=== PATIENT | male | born 1945 | race Caucasian/White ===

== ENCOUNTER 2019-07-24 07:25 | Outpatient (CLI) | payer OTHER, SELFPAY ==
--- NOTE | ~2019-07-24 | XR_ITS ---
XR chest 2V 07/24/2019 08:03 Indication: Pneumonia. COPD. Cough. Procedure: 2 view chest Comparison: Comparison to multiple prior studies sequentially, with oldest reviewed study dated 12/2018. Findings: There has been resolution of airspace disease of the left mid and lower lung. There is resi dual infiltrates of the lower lungs, likely atelectasis/scarring. There are emphysematous changes wit h bullous changes at the right apex. There is apical pleural thickening. Impression: 1: No acute cardiopulmonary disease. Interval resolution of left basilar pneumonia. Reviewed, dictated and finalized at location B. RANCE UNDERWRITER Impression: 1: No acute cardiopulmonary disease. Interval resolution of left basilar pneumo hilda.
== END 2019-07-24 07:26 | disposition home or self-care (01) ==
PROVIDERS: PCP Family Medicine; Visit Provider Physician Assistant
DX: J18.9 Pneumonia, unspecified organism (principal)
CPT/HCPCS: 71046

== ENCOUNTER 2019-12-10 13:46 | Outpatient (CLI) | payer OTHER, SELFPAY ==
--- NOTE | ~2019-12-10 | US_ITS ---
EXAMINATION: US venous doppler LE EXAM DATE: 12/10/2019 15:05 INDICATION: Right groin pain, follow-up. On blood thinners. TECHNIQUE: Multiple grayscale, color flow and Doppler images of the lower extremity deep venous syste ms bilaterally were obtained and reviewed. Comparison is made to prior examination from 05/31/2019. FINDINGS: RIGHT SIDE Common femoral: -------- Normal. Profunda femoral: ------- Normal. Femoral: Paired, 1 thrombosed. Popliteal: Thrombosed. Posterior tibial: ---------Nonocclusive thrombus. Peroneal: Nonocclusive thrombus. Gastrocnemius: Not visualized. Soleus: Not visualized. Greater saphenous: ----- Normal. Lesser saphenous: ------ Not visualized. Compared to prior study, previous thrombus appeared to distend the affected veins. There has been kenrick e interval improvement in bulk, size of the thrombus, and the gastrocnemius has normalized. LEFT SIDE Common femoral: -------- Normal. Profunda femoral: ------- Normal. Femoral: Normal. Popliteal: Normal. Posterior tibial: --------- Normal. Peroneal: Normal. Gastrocnemius: Not visualized. Soleus: Not visualized. Greater saphenous: ----- Normal. Lesser saphenous: ------ Not visualized. IMPRESSION: 1. Persistent right lower extremity DVT with some interval improvement. 2. No left DVT. Reviewed, dictated and finalized at location A.
== END 2019-12-10 13:47 | disposition home or self-care (01) ==
LOC: ANHIMG 13:47
PROVIDERS: PCP Family Medicine; Visit Provider Family Medicine
DX: I82.461 Acute embolism and thrombosis of right calf muscular vein (principal)
CPT/HCPCS: 93970

== ENCOUNTER 2020-03-10 08:29 | Outpatient (CLI) | payer OTHER, SELFPAY ==
--- NOTE | ~2020-03-10 | CT_ITS ---
EXAMINATION: CTA chest DATE: 03/10/2020 09:04 INDICATION: Thoracic aortic aneurysm without rupture TECHNIQUE: Computed tomographic angiography (CTA) of the chest was performed with 100 mL Omnipque-350 intravenous contrast. Maximum intensity projection 3D-reconstructions of the aorta and other arterie s were constructed by the technologist on a separate workstation. The dose-length product (DLP) was 6 34.03 mGy-cm. Automated exposure control and iterative reconstruction technique were employed. COMPARISON: 02/19/2019 FINDINGS: There is severe emphysema. The thoracic aorta measures 3.1 cm at the aortic valve, 4.3 cm a t the sinuses of Valsalva, and 3.5 cm at the level of the main pulmonary artery. There is no aortic d issection. There is a 4 mm nodule of the right lower lobe on image 76 which is not definitely identif ied on prior examinations. There is no pleural effusion or pneumothorax. Mild right hilar lymphadenop athy is stable and likely reactive. Calcified coronary artery atherosclerosis is noted. The heart siz e is normal. There is moderate thoracic spondylosis. Areas of cortical scarring are noted in the kidn eys. There is a 3 mm nonobstructing stone of the right kidney upper pole. IMPRESSION: 1. Stable ectasia of the aorta measuring 4.3 cm at the sinuses of Valsalva. 2. New 4 mm nodule of the right lower lobe. Follow-up CT in six months is recommended. 3. Severe emphysema. Reviewed, dictated and finalized at location A. IMPRESSION: 1. Stable ectasia of the aorta measuring 4.3 cm at the sinuses of Valsalva. 2. New 4 mm nodule of the right lower lobe. Follow-up CT in six months is recom mended. 3. Severe emphysema.
[2020-03-10 08:55] LABS: Estimated Glomerular Filt Rate > 60
== END 2020-03-10 08:30 | disposition home or self-care (01) ==
PROVIDERS: PCP Family Medicine; Visit Provider Internal Medicine Cardiovascular Disease
DX: I71.2 Thoracic aortic aneurysm, without rupture (principal); R91.1 Solitary pulmonary nodule; J43.9 Emphysema, unspecified
CPT/HCPCS: 71275; Q9967

== ENCOUNTER 2020-04-01 06:39 | Outpatient (NON) | payer OTHER, SELFPAY ==
[2020-04-02 14:57] LABS: SARS-CoV-2 RNA PCR Negative
== END 2020-04-01 06:40 ==
LOC: ANHCOVIDDT 06:57
PROVIDERS: PCP Family Medicine; Visit Provider Physician Assistant
DX: R05 Cough (principal); R06.02 Shortness of breath; Z20.828 Contact with and (suspected) exposure to other viral communicable diseases
CPT/HCPCS: 87635; C9803; U0003

== ENCOUNTER 2020-05-10 17:13 | Inpatient (IN) | payer OTHER, SELFPAY ==
[2020-05-10] VITALS (8 sets, daily range): BP systolic 146–191; BP diastolic 72–95; PULSE 82–106; RESP 18–28; TEMP 36.7–36.9; O2SAT 86–99; BMI 28.6
--- NOTE | ~2020-05-10 | XR_ITS ---
EXAMINATION: XR chest 1V portable EXAM DATE: 05/14/2020 06:21 INDICATION: Right pneumothorax, chest tube. TECHNIQUE: Portable AP frontal chest x-ray was obtained. Comparison is made to prior examination from 05/13/2020. FINDINGS: There is a right-sided small caliber chest tube in position. There is small right-sided pne umothorax unchanged. Patchy right-sided ill-defined predominant airspace disease unchanged, could be pneumonia and/or atelectasis. No pleural effusion. Cardiomediastinal silhouette is normal. There are mild bony degenerative changes. IMPRESSION: 1. Small right pneumothorax. Chest tube in position. 2. Patchy right-sided infiltrate. Reviewed, dictated and finalized at location A. RVISOR SINTERING PLANT
--- NOTE | ~2020-05-10 | XR_ITS ---
XR chest 1V portable 05/11/2020 21:05 Indication: Right-sided chest tube. Shortness of breath. Procedure: AP portable chest Comparison: Comparison to multiple prior studies sequentially, with oldest reviewed study dated 08/2019. Findings: Small residual pneumothorax post chest tube insertion. There is patchy bilateral airspace d isease. There is emphysema. There is right upper lobe scarring. No acute osseous abnormality. Impression: 1: Slightly increased right basilar pneumothorax compared with most recent chest x-ray. 2: Persistent patchy bilateral airspace disease, compatible with pneumonia. Reviewed, dictated and finalized at location A. NG ASSISTANT Impression: 1: Slightly increased right basilar pneumothorax compared with most recent ches t x-ray. 2: Persistent patchy bilateral airspace disease, compatible with pneumonia.
--- NOTE | ~2020-05-10 | XR_ITS ---
EXAMINATION: XR chest 1V portable INDICATION: Right pneumothorax TECHNIQUE: Portable AP chest at 0720 hours COMPARISON: 05/11/2020 FINDINGS: A tiny right basilar pneumothorax persists without significant change. A right-sided chest tube projects in expected position. There are patchy bilateral airspace opacities. No pleural effusio n is identified. The cardiomediastinal silhouette is stable. Lucencies in the upper lung zones are co nsistent with emphysema. IMPRESSION: 1. Stable small right pneumothorax. 2. Stable patchy bilateral airspace opacities, consistent with atelectasis versus pneumonia. Reviewed, dictated and finalized at location A. OMER SUPPORT AGENT IMPRESSION: 1. Stable small right pneumothorax. 2. Stable patchy bilateral airspace opacities, consistent with atelectasis vers us pneumonia.
--- NOTE | ~2020-05-10 | XR_ITS ---
EXAMINATION: XR chest 1V portable INDICATION: Right pneumothorax TECHNIQUE: Portable AP chest at 0543 hours COMPARISON: 05/12/2020 FINDINGS: A small right pneumothorax persists which is not significantly changed. A right-sided chest tube is in stable position. Patchy bilateral airspace opacities are stable. No pleural effusion is i dentified. The cardiomediastinal silhouette is unchanged. IMPRESSION: 1. Small right pneumothorax without significant change. 2. Stable bilateral airspace opacities, consistent with atelectasis versus pneumonia. Reviewed, dictated and finalized at location A. BLOCKER IMPRESSION: 1. Small right pneumothorax without significant change. 2. Stable bilateral airspace opacities, consistent with atelectasis versus pneu monia.
--- NOTE | ~2020-05-10 | XR_ITS ---
EXAMINATION: XR chest 1V portable EXAM DATE: 05/15/2020 08:09 INDICATION: f/u pneumothorax . TECHNIQUE: Portable AP frontal chest x-ray was obtained. Compared to study from 05/14/2020. FINDINGS: There is a right-sided small caliber chest tube in position. There is small right-sided pne umothorax, pleural reflection identified along the right lateral sulcus, indicated. This is less well visualized today due to increased emphysema which is now present in the right axilla. Patchy right-s ided ill-defined predominant airspace disease unchanged, could be pneumonia and/or atelectasis. No pl eural effusion. Cardiomediastinal silhouette is normal. There are mild bony degenerative changes. IMPRESSION: 1. Small right lateral sulcal pneumothorax. Chest tube in position. 2. Patchy right-sided infiltrate. Reviewed, dictated and finalized at location A. MIXER
--- NOTE | ~2020-05-10 | XR_ITS ---
EXAMINATION: XR chest 1V portable EXAM DATE: 05/14/2020 08:44 INDICATION: Right pneumothorax, CT on water seal. Tube suction clamped at 8 a.m. TECHNIQUE: Portable AP frontal chest x-ray was obtained. Comparison is made to prior examination from 6 a.m. earlier same day. FINDINGS: There is a right-sided small caliber chest tube in position. There is small right-sided pne umothorax unchanged. Patchy right-sided ill-defined predominant airspace disease unchanged, could be pneumonia and/or atelectasis. No pleural effusion. Cardiomediastinal silhouette is normal. There are mild bony degenerative changes. IMPRESSION: 1. Small right pneumothorax. Chest tube in position. 2. Patchy right-sided infiltrate. Reviewed, dictated and finalized at location A. MOTIVE REFINISHER
--- NOTE | ~2020-05-10 | XR_ITS ---
EXAMINATION: XR chest 1V portable EXAM DATE: 05/17/2020 06:41 INDICATION: Follow-up right-sided pneumothorax. TECHNIQUE: Portable AP frontal chest x-ray was obtained. Comparison is made to prior examination from 05/16/2020. FINDINGS: There is been some retraction of the right-sided chest tube, but the tip and side-port both still project over the pleural cavity. There is a small right-sided lateral sulcal pneumothorax, but with improvement compared to yesterday's exam. There is extensive gas in the right axilla, right molly e of the neck. Nonspecific right-sided atelectasis and possibly superimposed infection. Left lung is unremarkable. There are some chronic hyperinflation. The cardiomediastinal silhouette is prominent bu t magnified on this AP technique. There is aortic arteriosclerosis. There are mild bony degenerative changes. There is aortic arteriosclerosis. IMPRESSION: 1. Small right pneumothorax with interval improvement. 2. Chest tube has retracted some but tip and side-port still project over pleural cavity. 3. Right-sided atelectasis and possibly infection. Reviewed, dictated and finalized at location A. ILE PROCESSING TECHNICIAN IMPRESSION: 1. Small right pneumothorax with interval improvement. 2. Chest tube has retracted some but tip and side-port still project over pleu ral cavity. 3. Right-sided atelectasis and possibly infection.
--- NOTE | ~2020-05-10 | XR_ITS ---
EXAMINATION: XR chest 1V portable EXAM DATE: 05/16/2020 08:08 INDICATION: Pneumothorax follow-up. TECHNIQUE: Portable AP frontal chest x-ray was obtained. Compared to study from 05/15/2020. FINDINGS: There is a right-sided small caliber chest tube in position. There is small right-sided pne umothorax, pleural reflection identified along the right lateral sulcus, indicated. This may have sli ghtly increased in size compared to prior study. Again there is emphysema in the right axilla. Patchy right-sided ill-defined predominant airspace disease unchanged, could be pneumonia and/or atel ectasis. No pleural effusion. Cardiomediastinal silhouette is normal. There are mild bony degenerativ e changes. IMPRESSION: 1. Small right lateral sulcal pneumothorax, may have increased in size. 2. Patchy right-sided infiltrate unchanged. Reviewed, dictated and finalized at location A. SILICON PREPARATION WORKER
--- NOTE | ~2020-05-10 | XR_ITS ---
EXAMINATION: XR chest-chest tube insert/pos EXAM DATE: 05/10/2020 20:11 INDICATION: chest tube confirmation. TECHNIQUE: Portable AP frontal chest x-ray was obtained. Comparison is made to prior examination from earlier same date. FINDINGS: There is been interval insertion of a right-sided chest tube with significant improvement i n the pneumothorax previously seen. Patchy bilateral atelectasis and/or infection. No pleural effusio n. Cardiomediastinal silhouette is normal. Degenerative IMPRESSION: 1. Small right pneumothorax, improved following chest tube insertion. 2. Patchy bilateral atelectasis and/or infection. Reviewed, dictated and finalized at location A. E BONER
--- NOTE | ~2020-05-10 | XR_ITS ---
EXAMINATION: XR chest 1V portable EXAM DATE: 05/10/2020 18:36 INDICATION: Shortness of breath, history COPD, pneumonia, asthma. TECHNIQUE: Portable AP frontal chest x-ray was obtained. Comparison is made to prior examination from 07/24/2019. FINDINGS: There is small to moderate-sized right-sided pneumothorax along the lateral sulcus. Patchy ill-defined bilateral airspace disease probably pneumonia. No pleural effusion. Cardiomediastinal jacinto houette is normal. There is aortic arteriosclerosis. IMPRESSION: 1. Small to moderate right-sided pneumothorax. 2. Patchy ill-defined airspace disease probably pneumonia. I discussed pneumothorax with Elmira Kaiser MD at 05/10/2020 18:41 CEPHALOMETRIC TECHNICIAN. Reviewed, dictated and finalized at location A. ALOMETRIC TECHNICIAN
--- NOTE | 2020-05-10 17:35 | ECG_ITS ---
Measurements Intervals [place] Rate: 105 P: 58 NH: 169 QRS: -34 QRSD: 98 T: 61 QT: 326 QTc: 431 Interpretive Statements SINUS TACHYCARDIA LEFT AXIS DEVIATION INCOMPLETE RIGHT BUNDLE BRANCH BLOCK INFERIOR INFARCT, AGE INDETERMINATE BASELINE ARTIFACT- I, II, III, AVR, AVL, AVF, V1-V2 ABNORMAL ECG Electronically Signed On 05-10-2020 18:55:43 ASPHALT DISTRIBUTOR OPERATOR by Demario Parker D.O.
--- NOTE | 2020-05-10 17:47 | ED.GENADULT ---
HPI - General Adult General Chief complaint: Shortness of Breath/Dyspnea Stated complaint: Shortness of breath Time Seen by Provider: 05/10/20 17:21 Source: patient History of Present Illness HPI narrative: Patient is a 74 y/o male complaining of severe SOB since yesterday. He states that nebs help with his SOB slightly. He has slight cough when he uses his Neb. He has no fever or chest pain. He has known history of COPD. Related Data Home Medications Medication Instructions Recorded Confirmed albuterol sulfate 2 mg tablet 2 mg PO Q6H 04/15/19 04/23/20 ascorbate calcium (vitamin C) 500 500 mg PO DAILY 04/15/19 04/23/20 mg tablet calcium carbonate 500 mg calcium 500 mg PO DAILY 04/15/19 04/23/20 (1,250 mg) tablet cholecalciferol (vitamin D3) 25 1,000 unit PO DAILY 04/15/19 04/23/20 mcg (1,000 unit) capsule ipratropium bromide 17 1 puff INHALATION QID 04/15/19 04/23/20 mcg/actuation HFA aerosol inhaler omega-3 fatty acids 1,000 mg 1,000 mg PO DAILY 04/15/19 04/23/20 capsule psyllium husk 0.4 gram capsule 0.4 gm PO DAILY 04/15/19 04/23/20 red yeast rice 600 mg capsule 600 mg PO DAILY 04/15/19 04/23/20 vitamin B complex 1 tablet PO DAILY 04/15/19 04/23/20 Allergies Allergy/AdvReac Type Severity Reaction Status Date / Time No Known Allergies Allergy Verified 05/10/20 17:31 Review of Systems Constitutional: Constitutional: Denies chills, Denies fever(s), Denies headache(s) and Denies weakness Eyes: Eyes: Denies blurry vision ENT: Denies headache(s) and Denies neck pain Cardiovascular: Cardiovascular: Denies chest pain and Reports dyspnea Respiratory: Respiratory: Reports cough and Reports dyspnea Gastrointestinal: Gastrointestinal: Denies abdominal pain, Denies diarrhea, Denies nausea and Denies vomiting Genitourinary: Genitourinary: Denies hematuria and Denies dysuria Musculoskeletal: Musculoskeletal: Denies back pain and Denies neck pain Neurologic: Denies headache(s) and Denies weakness [facility] Past Medical History Medical History Asbestosis Asthma Chronic anemia Chronic respiratory failure Prn oxygen at 1 L nasal cannula. COPD (chronic obstructive pulmonary disease) It sounds like this is more related to chemical exposure from his place of employment than his 15 pack year smoking history. 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 Cough Diverticulosis Elevated WBC count GERD (gastroesophageal reflux disease) With history of esophageal ulcer. Grade I diastolic dysfunction Noted on echocardiogram in December 2017. Also noted was mild concentric left ventricular hypertrophy, impaired diastolic relaxation grade 1, and an estimated ejection fraction of 50-55%. Hematoma History of basal cell carcinoma Of the nose and ears, status post excision. History of colon polyps History of lung cancer Status post partial left upper lobectomy. Hypertension IFG (impaired fasting glucose) Osteoarthritis Preventative health care Stress test ordered per Dr. Parker in February 2018 was negative. Supplemental oxygen dependent Surgical History Surgical History History of basal cell carcinoma excision Status post hemorrhoidectomy Status post partial lobectomy of lung Left upper lobe, for lung cancer. Status post repair of ventral hernia Status post tonsillectomy Family History Family History Father Patient's father is Family history of coronary artery disease Hypertension Sibling Family history of diabetes mellitus in first degree relative Family history of coronary artery disease Family history of chronic obstructive pulmonary disease Hypertension Cerebrovascular accident Mother Diabetes mellitus Family history of diabetes mellitus in first degree relative Patient's mother is Other Family history of cardiovascular diseas
[2020-05-10] MEDS: methylPREDNISolone SOD SUCC 125 MG VIAL IV PUSH (17:48)
[2020-05-10 18:09] LABS: Basophils Absolute Auto 0.1 K/mm3 (0.0-0.1); Basophils Percent Auto 0.4 % (0.2-1.2); Eosinophils Absolute Auto 0.2 K/mm3 (0-0.3); Eosinophils Percent Auto 1.1 % (0-4.4); Hematocrit 44.3 % (42.0-52.0); Immature Granulocyte Absolute 0.07 K/mm3 (0.00-0.031); Immature Granulocyte Percent A 0.5 % (0-0.5); Lymphocytes Absolute Auto 5.37 K/mm3 (0.9-3.2); Lymphocytes Percent Auto 36.2 % (18.3-44.2); Mean Corpuscular HGB Conc 31.6 g/dl (32-36); Mean Corpuscular Volume 85.4 fl (80-100); Mean Platelet Volume 9.6 fl (7.4-10.4); Monocytes Absolute Auto 0.9 K/mm3 (0.1-0.6); Monocytes Percent Auto 6.3 % (2.6-8.5); Neutrophils Absolute Auto 8.3 K/mm3 (1.3-6.7); Neutrophils Percent Auto 55.5 % (45.5-73.1); Platelet Count Result 220 k/mm3 (150-375); Red Blood Count 5.19 M/mm3 (4.6-6.20); Red Cell Distribution Width 16.6 % (11.5-14.5); White Blood Count 14.8 K/mm3 (4.5-10.0)
[2020-05-10 18:16] LABS: Alanine Aminotransferase 31 U/L (4-50); Albumin Level 4.4 g/dL (3.5-5.1); Alkaline Phosphatase 77 U/L (38-126); Anion Gap 8 mmol/L (8-16); Aspartate Amino Transferase 36 U/L (17-59); Bilirubin,Total 0.3 mg/dL (0.2-1.3); Blood Urea Nitrogen 18 mg/dL (9-20); Calcium 8.8 mg/dL (8.4-10.2); Carbon Dioxide 27 mmol/L (22-30); Chloride 105 mmol/L (98-107); Estimated CRCL calculation 82 ml/min; Estimated Glomerular Filt Rate > 60; Glucose 129 mg/dL (75-110); Potassium 4.8 mmol/L (3.4-5.0); Sodium 140 mmol/L (137-145)
[2020-05-10 18:19] LABS: Atypical Lymphocytes Present; Ovalocytes 1+ (NORMAL); Platelet Estimate Adequate (Adequate)
[2020-05-10 18:24] LABS: Alveolar/Arterial O2 Gradient 121.1 mmHg; Base Excess ABG -4.3 mEq/l (+/-2.0); Fractional Inspired Oxygen 40 %; HCO3 ABG 21.8 mEq/l (22.0-26.0); Oxygen Content ABG 19.4 %vol (16.0-22.0); Oxygen Saturation ABG 97.8 % (95.0-100.0); Oxyhemoglobin 96.6 % THb (90.0-100.0); PCO2 ABG 43.8 mmHg (35.0-45.0); PO2 ABG 113.7 mmHg (80.0-100.0); PO2 FiO2 Ratio Arterial Blood 2.84 %; Site Drawn LEFT RADIAL; Total Hemoglobin 14.2 g/dL (12.0-18.0); pH ABG 7.315 (7.350-7.450)
[2020-05-10 18:25] LABS: Device NASAL CANNULA; Modified Allen's Test Pass
[2020-05-10 18:25] LABS: NT Pro B Type Natriuretic Pept 71 PG/ML (5-100)
[2020-05-10 18:28] LABS: Troponin I < 0.012 ng/mL (0.000-0.034)
[2020-05-10 19:25] LABS: INR 2.6; Prothrombin Time 28.1 Seconds (11.1-14.7)
[2020-05-10 19:26] LABS: Partial Thromboplastin Time 37.5 SECONDS (22.3-36.8)
--- NOTE | 2020-05-10 19:33 | PC.NURSE ---
called lab, Ladonna, told her we sent two sets of cultures. One from , the other from [facility]. She confirmed they received both sets.
[2020-05-10 19:46] LABS: Lactic Acid Reflex 1.3 mmol/L (0.7-2.1)
[2020-05-10] MEDS: MORPHINE SULFATE (*CRX) 4 MG/ML INJ (19:51)
--- NOTE | 2020-05-10 20:05 | PC.NURSE ---
Radiology at bedside on 05/10/2020 at 2005
[2020-05-10 21:05] LABS: Troponin I 0.018 ng/mL (0.000-0.034)
--- NOTE | 2020-05-10 21:09 | PC.NURSE ---
Chest tube placed by at 1957
--- NOTE | 2020-05-10 21:12 | PM.IMHP ---
H&P: HPI History of Present Illness Date/Time: 05/10/20 21:12 Chief Complaint: shortness of breath Narrative: This is a pleasant 74-year-old male with known history of COPD who is chronically anticoagulated on warfarin secondary to previous right lower extremity DVT and known to be chronically on 1 L of oxygen at home via nasal cannula. His history is significant for having a partial left upper lobectomy following lung cancer. The patient presented to the hospital [facility] with severe shortness of breath and dyspnea that started earlier today. Associated symptoms include wheezing. he denies any significant fever, chills, or coughing. Patient denies any known sick contacts. He has had very minimal relief using his home bronchodilators. while the patient was using his home bronchodilators he reports feeling a pop around his right lower chest. Afterwards the patient did have right lower chest discomfort. On arrival to the emergency room the patient was found to be hypoxic on room air and was quickly placed on 5 L of oxygen via nasal cannula to maintain his pulse ox. Patient was treated with Solu-Medrol and bronchodilators. Routine labs that were obtained demonstrated leukocytosis of 14,800. Chest x-ray that was obtained in the emergency room demonstrated a small to moderate right-sided pneumothorax and patchy ill-defined airspace disease probably pneumonia. ER provider has placed a right-sided chest tube. The patient himself denies any type of recent trauma. ER provider has swab the patient for COVID-19 and general surgery has been consulted to help manage the patient's chest tube. He has no other complaints at this time. Review of Systems Review of Systems: All systems reviewed & are unremarkable except as noted in HPI and below PMFSH Past Medical History Medical History Asbestosis Asthma Chronic anemia Chronic respiratory failure PRN oxygen via nasal cannula at home - pt reports using 2L as needed but typically does not wear his oxygen unless sick. COPD (chronic obstructive pulmonary disease) It sounds like this is more related to chemical exposure from his place of employment than his 15 pack year smoking history. 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 Diverticulosis Elevated WBC count Chronic steroid use. GERD (gastroesophageal reflux disease) With history of esophageal ulcer. Grade I diastolic dysfunction Noted on echocardiogram in December 2017. Also noted was mild concentric left ventricular hypertrophy, impaired diastolic relaxation grade 1, and an estimated ejection fraction of 50-55%. Hematoma History of basal cell carcinoma Of the nose and ears, status post excision. History of colon polyps History of lung cancer Status post partial left upper lobectomy. Hypertension IFG (impaired fasting glucose) Osteoarthritis Preventative health care Stress test ordered per Dr. Parker in February 2018 was negative. Supplemental oxygen dependent Surgical History Surgical History History of basal cell carcinoma excision Status post hemorrhoidectomy Status post partial lobectomy of lung Left upper lobe, for lung cancer. Status post repair of ventral hernia Laparoscopic ventral hernia repair in 2003 with [employer] mesh. Recurrent incisional hernia repair with mesh in November 2017. Repair of multiple recurrent ventral hernias with bilateral TAR in February 2018. Status post tonsillectomy Family History Family History Father Patient's father is Family history of coronary artery disease Hypertension Sibling Family history of diabetes mellitus in first degree relative Family history of coronary artery disease Family history of chronic obstructive pulmonary disease Hypertension Cerebrovascular accident Mother Diabetes mellitus Family hist
--- NOTE | 2020-05-10 23:16 | ADMGEN ---
This patient, Tito Khanna Anali Johnson, was admitted to [facility] Surg Room 321-01. Patient/family oriented to hospital policies and general routines including ID bracelet, bed and alarms, visiting hours, pain management, procedures, bathroom and other care routines, personal items, smoking policy, room service/diet, and visiting hours. Information on how to activate the Rapid Response Team has been discussed. Patient/Family are encouraged to report perceived risks to care and to ask questions if they do not understand what they are told or what they should do.
[2020-05-11] VITALS (9 sets, daily range): BP systolic 138–161; BP diastolic 68–80; PULSE 78–93; RESP 14–24; TEMP 36.6–37.3; O2SAT 94–98
[2020-05-11 00:25] LABS: Troponin I 0.017 ng/mL (0.000-0.034)
[2020-05-11] MEDS: ALBUTEROL SULFATE (*SP) AEROSOL 1 PUFF 2 PUFF INHALATION ×4 (04:29→20:15)
[2020-05-11 06:57] LABS: Basophils Percent Auto 0.2 % (0.2-1.2); Hematocrit 41.4 % (42.0-52.0); Hemoglobin 13.5 g/dL (14.0-18.0); Immature Granulocyte Absolute 0.06 K/mm3 (0.00-0.031); Immature Granulocyte Percent A 0.5 % (0-0.5); Lymphocytes Absolute Auto 2.47 K/mm3 (0.9-3.2); Mean Corpuscular HGB Conc 32.6 g/dl (32-36); Mean Corpuscular Hemoglobin 27.2 pg (26-34); Mean Corpuscular Volume 83.5 fl (80-100); Mean Platelet Volume 9.5 fl (7.4-10.4); Monocytes Absolute Auto 0.1 K/mm3 (0.1-0.6); Monocytes Percent Auto 1.1 % (2.6-8.5); Neutrophils Absolute Auto 9.6 K/mm3 (1.3-6.7); Neutrophils Percent Auto 78.2 % (45.5-73.1); Platelet Count Result 191 k/mm3 (150-375); Red Blood Count 4.96 M/mm3 (4.6-6.20); Red Cell Distribution Width 16.4 % (11.5-14.5); White Blood Count 12.3 K/mm3 (4.5-10.0)
[2020-05-11 07:08] LABS: Anion Gap 9 mmol/L (8-16); Blood Urea Nitrogen 17 mg/dL (9-20); Calcium 8.9 mg/dL (8.4-10.2); Carbon Dioxide 25 mmol/L (22-30); Chloride 100 mmol/L (98-107); Estimated CRCL calculation 82 ml/min; Estimated Glomerular Filt Rate > 60; Glucose 150 mg/dL (75-110); Potassium 4.5 mmol/L (3.4-5.0); Sodium 134 mmol/L (137-145)
[2020-05-11 08:49] LABS: INR 1.8; Prothrombin Time 21.6 Seconds (11.1-14.7)
[2020-05-11] MEDS: ASPIRIN 81 MG CHEWABLE TABLET PO (09:22)
[2020-05-11] MEDS: guaiFENesin 12 HR 600 MG TABCR 1200 MG PO ×2 (09:22→20:15)
[2020-05-11] MEDS: VITAMIN B COMPLEX CAPSULE 1 CAP PO (09:22)
[2020-05-11] MEDS: CALCIUM CARBONATE (OSCAL) 500 MG TABLET PO (09:23)
[2020-05-11] MEDS: CEFDINIR 300 MG CAPSULE PO ×2 (09:23→20:15)
[2020-05-11] MEDS: AZITHROMYCIN 250 MG TABLET PO (09:23)
[2020-05-11] MEDS: lisinopriL 20 MG TABLET 40 MG PO (09:23)
[2020-05-11] MEDS: CHOLECALCIFEROL 1,000 UNITS TABLET 1000 UNITS PO (09:24)
[2020-05-11] MEDS: OMEGA 3 POLYUNSAT FATTY ACIDS 1 GM CAP PO (09:24)
[2020-05-11] MEDS: PANTOPRAZOLE 40 MG TABLET PO (09:24)
[2020-05-11] MEDS: MULTIVITAMINS THERAPEUTIC TAB (*BKC) 1 TABLET PO (09:24)
[2020-05-11] MEDS: PRAVASTATIN SODIUM 20 MG TABLET PO (09:24)
[2020-05-11] MEDS: DEXAMETHASONE SOD PHOS INJ 4 MG/ML VIAL 6 MG IV PUSH (09:24)
[2020-05-11] MEDS: ASCORBIC ACID 500 MG TABLET PO (09:25)
[2020-05-11] MEDS: amLODIPine BESYLATE 5 MG TABLET PO (09:25)
[2020-05-11] MEDS: PSYLLIUM POWDER PACKET 1 PACKET PO (09:29)
--- NOTE | 2020-05-11 11:02 | PM.CNGS ---
Assessment and Plan Assessment and plan (1) Pneumothorax on right: Code(s): J93.9 - Pneumothorax, unspecified Status: Acute Assessment and Plan: Chest x-ray in the ER showed a small to moderate-sized right pneumothorax and possible pneumonia. A chest tube was placed in the ER with the repeat chest x-ray showing the chest tube was in good position with improvement of the right pneumothorax. After gathering a thorough history, it seems that this was most likely caused by a ruptured bleb. On my exam today, the chest tube is working well on suction with no air leak. I ordered incentive spirometry to be initiated. I discussed the patient's plan of care with Dr. Anderson. We will keep the chest tube on wall suction today and repeat a chest x-ray tomorrow morning. We will continue to monitor the patient with serial chest x-rays and exams. (2) Pneumonia: Qualifiers: Laterality: bilateral Lung location: unspecified part of lung Pneumonia type: due to unspecified organism Qualified Code(s): J18.9 - Pneumonia, unspecified organism Code(s): J18.9 - Pneumonia, unspecified organism Status: Acute Assessment and Plan: CXR suggesting possible pneumonia. Currently on oral antibiotics and bronchodilators. Requiring 2L O2 currently. Continue management per Hospitalist. (3) Person under investigation for COVID-19: Code(s): Z20.828 - Contact with and (suspected) exposure to other viral communicable diseases Status: Acute Assessment and Plan: COVID-19 test pending. Currently on dexamethasone. Continue airborne, droplet, and contact precautions until test has resulted. Discussed with the Hospitalist, who feels he is not a candidate for remdesivir if COVID positive. Care per primary team. (4) Acute exacerbation of chronic obstructive pulmonary disease: Code(s): J44.1 - Chronic obstructive pulmonary disease with (acute) exacerbation Status: Acute Assessment and Plan: Ruling out acute COPD exacerbation. Continue bronchodilators. Management per Hospitalist. (5) COPD (chronic obstructive pulmonary disease): Code(s): J44.9 - Chronic obstructive pulmonary disease, unspecified Status: Acute (6) Chronic respiratory failure with hypoxia: Code(s): J96.11 - Chronic respiratory failure with hypoxia Status: Acute Assessment and Plan: Uses 2 liters of oxygen via nasal cannula at home as needed. He typically only wears this when his shortness of breath is exacerbated. (7) History of lobectomy of lung: Code(s): Z90.2 - Acquired absence of lung [part of] Status: Acute (8) Chronic anticoagulation: Code(s): Z79.01 - oysterman (current) use of anticoagulants Status: Chronic Assessment and Plan: On warfarin therapy for right lower extremity DVT in April of 2019. (9) Deep vein thrombosis (DVT) of calf muscle vein of right lower extremity: Code(s): I82.461 - Acute embolism and thrombosis of right calf muscular vein Status: Acute (10) Essential (primary) hypertension: Code(s): I10 - Essential (primary) hypertension Status: Chronic (11) Gastro-esophageal reflux disease without esophagitis: Code(s): K21.9 - Gastro-esophageal reflux disease without esophagitis Status: Chronic (12) Dyslipidemia: Code(s): E78.5 - Hyperlipidemia, unspecified Status: Acute Additional Plan Discussed plan with Dr. Anderson. Thank you for allowing us to see the patient in consultation and we will continue to follow along with you. History of Present Illness Consult details Consult date: 05/11/20 Reason for consult: chest tube Requesting physician: Elmira Kaiser MD Narrative: This is a 74-year-old male with a history of COPD with chronic respiratory failure, history of tobacco abuse, history of lung cancer status post left partial lobectomy, hypertension, and history of DVT on chronic oral anticoagulati
--- NOTE | 2020-05-11 13:02 | PM.PNGS ---
Progress Note: A&P Assessment and Plan (1) Pneumothorax on right: Code(s): J93.9 - Pneumothorax, unspecified Status: Acute Assessment and Plan: chest tube in good position and working well. Follow with daily clinical evaluation as well as daily chest x-rays. If no air leak tomorrow, will probably place to water seal. Removal of chest tube pending results of COVID and clinical assessment of inherent lung disease. (2) Pneumonia: Qualifiers: Laterality: bilateral Lung location: unspecified part of lung Pneumonia type: due to unspecified organism Qualified Code(s): J18.9 - Pneumonia, unspecified organism Code(s): J18.9 - Pneumonia, unspecified organism Status: Acute Assessment and Plan: CXR suggesting possible pneumonia. Currently on oral antibiotics and bronchodilators. Requiring 2L O2 currently. Continue management per Hospitalist. (3) Person under investigation for COVID-19: Code(s): Z20.828 - Contact with and (suspected) exposure to other viral communicable diseases Status: Acute Assessment and Plan: COVID-19 test pending. Currently on dexamethasone. Continue airborne, droplet, and contact precautions until test has resulted. Discussed with the Hospitalist, who feels he is not a candidate for remdesivir if COVID positive. Care per primary team. (4) Chronic respiratory failure with hypoxia: Code(s): J96.11 - Chronic respiratory failure with hypoxia Status: Acute Assessment and Plan: Uses 2 liters of oxygen via nasal cannula at home as needed. He typically only wears this when his shortness of breath is exacerbated. 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 INR 1.8 today with protime of 21.6. Continues to receive warfarin orally. Subjective Subjective Date/Time Seen: 05/11/20 13:02 Patient is a 74-year-old man with severe COPD and chronic dyspnea on exertion increased shortness of breath even at rest he was noted to have a right lower chest loculated pneumothorax. The emergency room physician treated this with a chest tube which resulted in nice re-expansion. The patient is admitted and is under investigation for COVID. He is seen now for management of his spontaneous right pneumothorax and the chest tube management. Review of Systems Review of Systems: All systems reviewed & are unremarkable except as noted in HPI and below ( HPI and those items noted below) Constitutional: Constitutional: Reports as per HPI, Denies chills, Denies excessive sweating, Denies fatigue, Denies fever(s), Denies headache(s) and Denies weakness Gastrointestinal: Gastrointestinal: Reports no additional gastrointestinal complaints, Denies abdominal pain, Denies change in bowel habits, Denies change in stool character, Denies GI cramping, Denies diarrhea, Denies nausea and Denies vomiting Genitourinary: Genitourinary: Reports no additional male genitourinary complaints, Denies hematuria and Denies dysuria Integumentary/Breasts: Skin/Breast: Denies pruritus, Denies wounds and Denies jaundice Neurologic: Denies dizziness, Denies syncope, Denies headache(s), Denies loss of vision, Denies tingling, Denies tremor(s) and Denies weakness Hematologic/Lymphatic: Hematologic/Lymphatic: Reports other (Hx LE DVT in April 2019, on warfarin therapy) Exam Const: General: comfortable, no acute distress, alert and awake Nutritional Appearance: average body habitus Orientation/consciousness: patient oriented x3 Limitations: no limitations Neck: Neck: other ( no crepitus or subcutaneous emphysema) Chest: Chest palpation & inspection: no crepitus ( no subcutaneous emphysema) and no masses Ot
--- NOTE | 2020-05-11 15:56 | PM.IMPN ---
Progress Note: A&P Assessment and Plan (1) Acute respiratory failure with hypoxia: Code(s): J96.01 - Acute respiratory failure with hypoxia Status: Acute Assessment and Plan: Appears to be secondary to pneumothorax although possible pneumonia also playing a role vs COPD exacerbation. It was originally expressed that he is on chronic oxygen at home, however, he tells me today that he does not typically wear oxygen and only uses it occasionally if he is feeling more short of breath than usual. He has been maintaining adequate saturations today, however was increased to 3L O2 per nursing mainly for comfort; discussed with nursing to wean as tolerated. Continue oxygen supplementation. Wean off oxygen when possible. Continuous pulse oximetry. Continue treatment for pneumonia (viral vs bacterial) and pneumothorax. RT assess and treat. (2) Pneumonia: Qualifiers: Laterality: bilateral Lung location: unspecified part of lung Pneumonia type: due to unspecified organism Qualified Code(s): J18.9 - Pneumonia, unspecified organism Code(s): J18.9 - Pneumonia, unspecified organism Status: Acute Assessment and Plan: CXR suggestive of potential pneumonia. Acute bacterial versus viral pneumonia. Patient swabbed for COVID in ED, although this seems less likely given his history. Continue IV antibiotics that were started in the ER. Continue oxygen support continuous pulse oximetry. Blood and sputum cultures are pending. Check urine antigens. Continue bronchodilators. Continue supportive care. Await COVID results; continue IV dexamethasone in the interim. Consider Remdesivir if positive if requiring supplemental oxygen (3) Spontaneous pneumothorax: Code(s): J93.83 - Other pneumothorax Status: Acute Assessment and Plan: Chest tube has been placed by ER provider. General surgery has been consulted to manage chest tube; appreciate recommendations. Continue general surgery recommendations. (4) Suspected 2019 novel coronavirus infection: Code(s): Z20.828 - Contact with and (suspected) exposure to other viral communicable diseases Status: Acute Assessment and Plan: Patient has been swab for COVID-19. Continue droplet isolation. Continue supportive measures. Continue Decadron daily for now COVID-19 results pending. Consider Remdesivir if still hypoxic and patient is positive (5) COPD exacerbation: Code(s): J44.1 - Chronic obstructive pulmonary disease with (acute) exacerbation Status: Acute Assessment and Plan: Given hypoxia and wheezing likely acute COPD exacerbation component. Will continue bronchodilators, steroid therapy. Respiratory support. RT assess and treat. (6) Elevated WBC count: Qualifiers: Leukocytosis type: unspecified Qualified Code(s): D72.829 - Elevated white blood cell count, unspecified Code(s): D72.829 - Elevated white blood cell count, unspecified Status: Acute Assessment and Plan: The patient's leukocytosis may be secondary to pneumonia although the patient appears chronically be on prednisone and elevated white count may also be secondary to spontaneous pneumothorax that occurred on 05/10. Monitor CBCD. (7) Sepsis: Qualifiers: Acute respiratory failure type: with hypoxia Sepsis acute organ dysfunction status: with acute organ dysfunction Sepsis type: sepsis due to unspecified organism Severe sepsis acute organ dysfunction type: acute respiratory failure Severe sepsis shock status: without septic shock Qualified Code(s): A41.9 - Sepsis, unspecified organism; R65.20 - Severe sepsis without septic shock; J96.01 - Acute res
[2020-05-11 16:54] LABS: SARS-CoV-2 RNA PCR Negative
[2020-05-11] MEDS: WARFARIN (*PBKC) 5 MG TABLET PO (17:03)
[2020-05-11] MEDS: ACETAMINOPHEN 325 MG TABLET 650 MG PO (20:15)
--- NOTE | 2020-05-11 21:11 | PC.NURSE ---
2014 this RN to room to asses patient and give night time medications. Patient complains of increased shortness of breath and right sided chest pain since using the incentive spirometer this afternoon. continuous bubble noted in water chamber of chest tube. Insertion site/taped assessed, reinforced with silk tape. Suction on wall noted to be at 20. Turned up to 60. No improvement of bubbling in water chamber 2029 Ladonna Sky at bedside to assess chest tube. [address] Anderson's exchange. 2042 Dr. Gilbert returned phone call. Telephone order received for stat portable chest xray and to turn wall suction up to 80-100. Call Dr. Gilbert with results of CXR. 2054 X-ray at bedside to do portable CXR 2100 Vital signs stable. 98% on 3L, 20 rr, 78 pulse, 145/69, 97.9
[2020-05-12] VITALS (7 sets, daily range): BP systolic 119–148; BP diastolic 66–76; PULSE 72–88; RESP 16–20; TEMP 36.1–37.3; O2SAT 96–97
[2020-05-12] MEDS: ALBUTEROL SULFATE (*SP) AEROSOL 1 PUFF 2 PUFF INHALATION ×4 (02:56→21:23)
[2020-05-12] MEDS: ACETAMINOPHEN 325 MG TABLET 650 MG PO ×4 (02:56→16:31)
[2020-05-12 06:28] LABS: Basophils Absolute Auto 0.1 K/mm3 (0.0-0.1); Basophils Percent Auto 0.3 % (0.2-1.2); Eosinophils Percent Auto 0.2 % (0-4.4); Hematocrit 40.7 % (42.0-52.0); Hemoglobin 12.9 g/dL (14.0-18.0); Immature Granulocyte Absolute 0.08 K/mm3 (0.00-0.031); Immature Granulocyte Percent A 0.5 % (0-0.5); Mean Corpuscular HGB Conc 31.7 g/dl (32-36); Mean Corpuscular Hemoglobin 26.3 pg (26-34); Mean Corpuscular Volume 82.9 fl (80-100); Mean Platelet Volume 9.4 fl (7.4-10.4); Monocytes Absolute Auto 1.4 K/mm3 (0.1-0.6); Monocytes Percent Auto 8.7 % (2.6-8.5); Neutrophils Absolute Auto 9.8 K/mm3 (1.3-6.7); Neutrophils Percent Auto 62.3 % (45.5-73.1); Platelet Count Result 219 k/mm3 (150-375); Red Blood Count 4.91 M/mm3 (4.6-6.20); Red Cell Distribution Width 16.8 % (11.5-14.5); White Blood Count 15.7 K/mm3 (4.5-10.0)
[2020-05-12 06:37] LABS: Anion Gap 8 mmol/L (8-16); Blood Urea Nitrogen 26 mg/dL (9-20); Calcium 8.9 mg/dL (8.4-10.2); Carbon Dioxide 27 mmol/L (22-30); Chloride 103 mmol/L (98-107); Estimated CRCL calculation 65 ml/min; Estimated Glomerular Filt Rate > 60; Glucose 107 mg/dL (75-110); Magnesium 2.3 mg/dL (1.6-2.3); Potassium 4.2 mmol/L (3.4-5.0); Sodium 138 mmol/L (137-145)
[2020-05-12 07:28] LABS: INR 1.9; Prothrombin Time 22.2 Seconds (11.1-14.7)
[2020-05-12 08:13] LABS: Atypical Lymphocytes Present; Platelet Estimate Adequate (Adequate)
[2020-05-12] MEDS: PRAVASTATIN SODIUM 20 MG TABLET PO (08:27)
[2020-05-12] MEDS: PSYLLIUM POWDER PACKET 1 PACKET PO (08:27)
[2020-05-12] MEDS: guaiFENesin 12 HR 600 MG TABCR 1200 MG PO ×2 (08:27→21:22)
[2020-05-12] MEDS: VITAMIN B COMPLEX CAPSULE 1 CAP PO (08:27)
[2020-05-12] MEDS: AZITHROMYCIN 250 MG TABLET PO (08:27)
[2020-05-12] MEDS: CEFDINIR 300 MG CAPSULE PO (08:28)
[2020-05-12] MEDS: MULTIVITAMINS THERAPEUTIC TAB (*BKC) 1 TABLET PO (08:28)
[2020-05-12] MEDS: CHOLECALCIFEROL 1,000 UNITS TABLET 1000 UNITS PO (08:28)
[2020-05-12] MEDS: amLODIPine BESYLATE 5 MG TABLET PO (08:28)
[2020-05-12] MEDS: PANTOPRAZOLE 40 MG TABLET PO (08:28)
[2020-05-12] MEDS: OMEGA 3 POLYUNSAT FATTY ACIDS 1 GM CAP PO (08:28)
[2020-05-12] MEDS: CALCIUM CARBONATE (OSCAL) 500 MG TABLET PO (08:28)
[2020-05-12] MEDS: ASCORBIC ACID 500 MG TABLET PO (08:28)
[2020-05-12] MEDS: ASPIRIN 81 MG CHEWABLE TABLET PO (08:28)
[2020-05-12] MEDS: DEXAMETHASONE SOD PHOS INJ 4 MG/ML VIAL 6 MG IV PUSH (08:29)
[2020-05-12] MEDS: lisinopriL 20 MG TABLET 40 MG PO (08:29)
--- NOTE | 2020-05-12 09:40 | PM.PNGS ---
Progress Note: A&P Assessment and Plan (1) Pneumothorax on right: Code(s): J93.9 - Pneumothorax, unspecified Status: Acute Assessment and Plan: Patient had an episode of shortness of breath overnight, which has since resolved. Chest x-ray overnight and this morning show chest tube to still be in good position, report shows only a tiny residual right pneumothorax this morning. Air leak on exam today. Will keep the chest tube to wall suction and repeat a chest x-ray again tomorrow morning. (2) Pneumonia: Qualifiers: Laterality: bilateral Lung location: unspecified part of lung Pneumonia type: due to unspecified organism Qualified Code(s): J18.9 - Pneumonia, unspecified organism Code(s): J18.9 - Pneumonia, unspecified organism Status: Acute Assessment and Plan: CXR suggesting possible pneumonia. Currently on oral antibiotics and bronchodilators. Requiring 3L O2 currently. Continue management per Hospitalist. (3) Person under investigation for COVID-19: Code(s): Z20.828 - Contact with and (suspected) exposure to other viral communicable diseases Status: Acute Assessment and Plan: COVID-19 test negative. All isolation precautions stopped. (4) Chronic respiratory failure with hypoxia: Code(s): J96.11 - Chronic respiratory failure with hypoxia Status: Acute (5) History of lobectomy of lung: Code(s): Z90.2 - Acquired absence of lung [part of] Status: Acute (6) Chronic anticoagulation: Code(s): Z79.01 - retirement (current) use of anticoagulants Status: Chronic Assessment and Plan: On warfarin therapy for right lower extremity DVT in April of 2019. INR 1.9 today with protime of 22.2. Warfarin continued. Additional Plan Discussed plan with Dr. Anderson. Subjective Subjective Date/Time Seen: 05/12/20 09:40 Patient reports: shortness of breath (overnight) Interval history: Patient feeling well this morning. Reports an episode of shortness of breath around 8 pm last night that lasted a few hours. Chest x-ray done last night after becoming symptomatic, showed chest tube in place and slightly increased right small pneumothorax from previous x-ray. The shortness of breath ended up resolving and he felt better throughout the night. This morning, denies any shortness of breath. Still just soreness at the chest tube site. Does report bubbling sound from the canister overnight. Review of Systems Review of Systems: All systems reviewed & are unremarkable except as noted in HPI and below Respiratory: Respiratory: Reports as per HPI and Reports no additional respiratory complaints Exam Const: General: comfortable, no acute distress, alert and awake Orientation/consciousness: patient oriented x3 Neck: Neck: other ( no crepitus or subcutaneous emphysema) Chest: Chest palpation & inspection: no crepitus ( no subcutaneous emphysema) Other: Right lateral chest tube in place on wall suction. Air leak present on exam today. Connections secured and dressing taken down and changed with air leak remaining. Resp: Effort & Inspection: normal respiratory effort and able to speak in complete sentences Auscultation: wheezes expiratory wheezes, inspiratory wheezes and throughout Cardio: Rate: regular rate Rhythm: regular rhythm Skin: General skin exam: normal color Neuro: General: moves all extremities and no focal motor deficits Extrem: General: normal to inspection and no clubbing, cyanosis or edema Psych: Appearance: grossly normal Mental Status: mental status grossly normal Insight: Good insight present (Psych) Judgement: Good judgement present (Psych) Objective Data Vital Signs Vital Signs: Vital Signs - 24 hr 05/11/20 11:42 05/11/20 12:00 05/11/20 16:00 Temperature 99.2 F 98.6 F Pulse Rate 86 85 Respiratory Rate 18 14 Blood Pressure 138/71 146/68 H Pulse Oximetry 94 97 97 05/11/20 16:49 05/11/20 20:00 04/22
--- NOTE | 2020-05-12 13:42 | PM.IMPN ---
Progress Note: A&P Assessment and Plan (1) Acute respiratory failure with hypoxia: Code(s): J96.01 - Acute respiratory failure with hypoxia Status: Acute Assessment and Plan: Appears to be secondary to pneumothorax although possible pneumonia also playing a role vs COPD exacerbation. Continuous pulse oximetry. Continue treatment for pneumonia (viral vs bacterial) and pneumothorax. RT assess and treat. (2) Pneumonia: Qualifiers: Laterality: bilateral Lung location: unspecified part of lung Pneumonia type: due to unspecified organism Qualified Code(s): J18.9 - Pneumonia, unspecified organism Code(s): J18.9 - Pneumonia, unspecified organism Status: Acute Assessment and Plan: CXR suggestive of potential pneumonia. CAP Covid negative Continue IV antibiotics that were started in the ER. Continue oxygen support continuous pulse oximetry. Blood and sputum cultures are pending. Check urine antigens. Continue bronchodilators. (3) Spontaneous pneumothorax: Code(s): J93.83 - Other pneumothorax Status: Acute Assessment and Plan: Chest tube has been placed by ER provider. General surgery has been consulted to manage chest tube; appreciate recommendations. (4) Suspected 2019 novel coronavirus infection: Code(s): Z20.828 - Contact with and (suspected) exposure to other viral communicable diseases Status: Ruled-out Assessment and Plan: COVID negative (5) COPD exacerbation: Code(s): J44.1 - Chronic obstructive pulmonary disease with (acute) exacerbation Status: Acute Assessment and Plan: Given hypoxia and wheezing likely acute COPD exacerbation component. (6) Elevated WBC count: Qualifiers: Leukocytosis type: unspecified Qualified Code(s): D72.829 - Elevated white blood cell count, unspecified Code(s): D72.829 - Elevated white blood cell count, unspecified Status: Acute Assessment and Plan: The patient's leukocytosis may be secondary to pneumonia[place] [id number] [place], pt is on oral azithromycin and iv rocephin (7) Sepsis: Qualifiers: Acute respiratory failure type: with hypoxia Sepsis acute organ dysfunction status: with acute organ dysfunction Sepsis type: sepsis due to unspecified organism Severe sepsis acute organ dysfunction type: acute respiratory failure Severe sepsis shock status: without septic shock Qualified Code(s): A41.9 - Sepsis, unspecified organism; R65.20 - Severe sepsis without septic shock; J96.01 - Acute respiratory failure with hypoxia Code(s): A41.9 - Sepsis, unspecified organism Status: Resolved Assessment and Plan: Pt is doing better (8) Essential (primary) hypertension: Code(s): I10 - Essential (primary) hypertension Status: Chronic Assessment and Plan: Continue amlodipine and lisinopril. P.r.n. IV hydralazine is ordered with parameters. Bp is stable 127/67 (9) Gastro-esophageal reflux disease without esophagitis: Code(s): K21.9 - Gastro-esophageal reflux disease without esophagitis Status: Chronic Assessment and Plan: Continue PPI therapy. (10) HLD (hyperlipidemia): Qualifiers: Hyperlipidemia type: unspecified Qualified Code(s): E78.5 - Hyperlipidemia, unspecified Code(s): E78.5 - Hyperlipidemia, unspecified Status: Chronic Assessment and Plan: Continue pravastatin. (11) Chronic anticoagulation: Code(s): Z79.01 - retirement (current) use of anticoagulants Status: Chronic
[2020-05-12] MEDS: WARFARIN (*PBKC) 2.5 MG TABLET PO (16:32)
[2020-05-12] MEDS: HYDROcodone/acetaminophen (*CRX) 5-325 MG TABLET 1 TAB PO (21:24)
[2020-05-12] MEDS: CALCIUM CARBONATE (TUMS) 500 MG (200 MG ELEMENTAL) PO (21:50)
[2020-05-13] MEDS: ALBUTEROL SULFATE (*SP) AEROSOL 1 PUFF 2 PUFF INHALATION ×3 (01:55→14:30)
[2020-05-13] MEDS: HYDROcodone/acetaminophen (*CRX) 5-325 MG TABLET 1 TAB PO ×3 (01:57→17:23)
[2020-05-13 04:00] VITALS: BP 140/71; PULSE 68; RESP 18; TEMP 36.7; O2SAT 96
[2020-05-13 06:48] LABS: Hematocrit 40.8 % (42.0-52.0); Mean Corpuscular HGB Conc 31.9 g/dl (32-36); Mean Corpuscular Hemoglobin 26.6 pg (26-34); Mean Corpuscular Volume 83.6 fl (80-100); Mean Platelet Volume 9.6 fl (7.4-10.4); Platelet Count Result 234 k/mm3 (150-375); Red Blood Count 4.88 M/mm3 (4.6-6.20); Red Cell Distribution Width 16.4 % (11.5-14.5); White Blood Count 16.2 K/mm3 (4.5-10.0)
[2020-05-13 06:58] LABS: INR 2.1; Prothrombin Time 24.5 Seconds (11.1-14.7)
[2020-05-13 07:05] LABS: Anion Gap 7 mmol/L (8-16); Blood Urea Nitrogen 25 mg/dL (9-20); Calcium 8.9 mg/dL (8.4-10.2); Carbon Dioxide 28 mmol/L (22-30); Chloride 100 mmol/L (98-107); Estimated CRCL calculation 65 ml/min; Estimated Glomerular Filt Rate > 60; Glucose 114 mg/dL (75-110); Potassium 4.3 mmol/L (3.4-5.0); Sodium 135 mmol/L (137-145)
[2020-05-13 08:00] VITALS: BP 151/70; PULSE 65; RESP 18; TEMP 36.5; O2SAT 100
[2020-05-13] MEDS: ASCORBIC ACID 500 MG TABLET PO (08:34)
[2020-05-13] MEDS: ASPIRIN 81 MG CHEWABLE TABLET PO (08:34)
[2020-05-13] MEDS: amLODIPine BESYLATE 5 MG TABLET PO (08:34)
[2020-05-13] MEDS: CALCIUM CARBONATE (OSCAL) 500 MG TABLET PO (08:35)
[2020-05-13] MEDS: AZITHROMYCIN 250 MG TABLET PO (08:35)
[2020-05-13] MEDS: CHOLECALCIFEROL 1,000 UNITS TABLET 1000 UNITS PO (08:35)
[2020-05-13] MEDS: guaiFENesin 12 HR 600 MG TABCR 1200 MG PO ×2 (08:35→21:15)
[2020-05-13] MEDS: DEXAMETHASONE SOD PHOS INJ 4 MG/ML VIAL 6 MG IV PUSH (08:35)
[2020-05-13] MEDS: OMEGA 3 POLYUNSAT FATTY ACIDS 1 GM CAP PO (08:36)
[2020-05-13] MEDS: PANTOPRAZOLE 40 MG TABLET PO (08:36)
[2020-05-13] MEDS: PRAVASTATIN SODIUM 20 MG TABLET PO (08:36)
[2020-05-13] MEDS: MULTIVITAMINS THERAPEUTIC TAB (*BKC) 1 TABLET PO (08:36)
[2020-05-13] MEDS: lisinopriL 20 MG TABLET 40 MG PO (08:36)
[2020-05-13] MEDS: VITAMIN B COMPLEX CAPSULE 1 CAP PO (08:36)
[2020-05-13] MEDS: PSYLLIUM POWDER PACKET 1 PACKET PO (08:50)
[2020-05-13 09:55] LABS: Legionella pneumophila Ag Ur Not Detected (Not Detected)
--- NOTE | 2020-05-13 11:34 | PM.PNGS ---
Progress Note: A&P Assessment and Plan (1) Pneumothorax on right: Code(s): J93.9 - Pneumothorax, unspecified Status: Acute Assessment and Plan: Chest x-ray this morning is unchanged. Chest tube still in good position. There is still an air leak. We will leave the chest tube to wall suction again today and repeat a chest x-ray tomorrow morning. I discussed with the patient that if his air leak does not resolve in the next few days, then he may require transfer to thoracic surgery at a tertiary care facility for possible VATS procedure. Patient verbalized understanding. (2) Pneumonia: Qualifiers: Laterality: bilateral Lung location: unspecified part of lung Pneumonia type: due to unspecified organism Qualified Code(s): J18.9 - Pneumonia, unspecified organism Code(s): J18.9 - Pneumonia, unspecified organism Status: Acute Assessment and Plan: CXR suggesting possible pneumonia. Currently on oral antibiotics and bronchodilators. Requiring 3L O2 currently. Increasing leukocytosis could be related to the steroids. Continue management per Hospitalist. 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 INR 2.1 today. Warfarin continued. (6) COPD (chronic obstructive pulmonary disease): Code(s): J44.9 - Chronic obstructive pulmonary disease, unspecified Status: Acute Additional Plan Discussed plan with Dr. Anderson. Subjective Subjective Date/Time Seen: 05/13/20 10:34 Patient reports: no new complaints and feels better Interval history: Patient states he is feeling well this morning. He denies any shortness of breath. He denies any new complaints. Review of Systems Review of Systems: All systems reviewed & are unremarkable except as noted in HPI and below Constitutional: Constitutional: Reports as per HPI, Denies chills and Denies fever(s) Respiratory: Respiratory: Reports as per HPI and Reports no additional respiratory complaints Exam Const: General: comfortable, no acute distress, alert and awake Orientation/consciousness: patient oriented x3 Chest: Chest palpation & inspection: no crepitus ( no subcutaneous emphysema) Other: Right lateral chest tube in place on wall suction. Air leak present on exam today. Connections secured and dressing taken down and changed with air leak remaining. Resp: Effort & Inspection: normal respiratory effort and able to speak in complete sentences Auscultation: wheezes expiratory wheezes, inspiratory wheezes and throughout Cardio: Rate: regular rate Rhythm: regular rhythm Skin: General skin exam: normal color Neuro: General: moves all extremities and no focal motor deficits Psych: Appearance: grossly normal Mental Status: mental status grossly normal Insight: Good insight present (Psych) Judgement: Good judgement present (Psych) Objective Data Vital Signs Vital Signs: Vital Signs - 24 hr 05/12/20 12:00 05/12/20 16:00 05/12/20 20:00 Temperature 98.2 F 99.2 F 97.7 F Pulse Rate 81 84 87 Respiratory Rate 20 20 18 Blood Pressure 127/67 130/68 140/68 Pulse Oximetry 97 97 96 05/12/20 21:00 05/12/20 23:56 05/13/20 04:00 Temperature 97.0 F L 98.1 F Pulse Rate 73 68 Respiratory Rate 18 18 Blood Pressure 119/68 140/71 Pulse Oximetry 96 97 96 05/13/20 08:00 Temperature 97.7 F Pulse Rate 65 Respiratory Rate 18 Blood Pressure 151/70 H Pulse Oximetry 100 Intake/Output Intake/Output: Intake & Output 05/10/20 05/11/20 05/12/20 05/13/20 23:59 23:59 23:59 23:59 Intake Total 300 2450 2280 560 Output
[2020-05-13 12:00] VITALS: BP 149/69; PULSE 69; RESP 18; TEMP 36.9; O2SAT 98
--- NOTE | 2020-05-13 12:26 | PM.IMPN ---
Progress Note: A&P Assessment and Plan (1) Acute respiratory failure with hypoxia: Code(s): J96.01 - Acute respiratory failure with hypoxia Status: Acute Assessment and Plan: Appears to be secondary to both pneumonia and pneumothorax. Continue oxygen supplementation at 3 liters. (2) Pneumonia: Qualifiers: Pneumonia type: due to unspecified organism Laterality: bilateral Lung location: unspecified part of lung Qualified Code(s): J18.9 - Pneumonia, unspecified organism Code(s): J18.9 - Pneumonia, unspecified organism Status: Acute Assessment and Plan: CAP. Continue IV antibiotics that were started in the ER. BC negative to date (3) Spontaneous pneumothorax: Code(s): J93.83 - Other pneumothorax Status: Acute Assessment and Plan: Chest tube has been placed by ER provider. General surgery has been consulted to manage chest tube. Continue general surgery recommendations. (4) Suspected 2019 novel coronavirus infection: Code(s): Z20.828 - Contact with and (suspected) exposure to other viral communicable diseases Status: Ruled-out Assessment and Plan: COVID TEST is negative. (5) COPD exacerbation: Code(s): J44.1 - Chronic obstructive pulmonary disease with (acute) exacerbation Status: Acute Assessment and Plan: MIld COPD excerbation Will continue bronchodilators, steroid therapy. (6) Elevated WBC count: Qualifiers: Leukocytosis type: unspecified Qualified Code(s): D72.829 - Elevated white blood cell count, unspecified Code(s): D72.829 - Elevated white blood cell count, unspecified Status: Acute Assessment and Plan: The patient's leukocytosis may be secondary to pneumonia (7) Sepsis: Qualifiers: Sepsis type: sepsis due to unspecified organism Sepsis acute organ dysfunction status: with acute organ dysfunction Severe sepsis acute organ dysfunction type: acute respiratory failure Acute respiratory failure type: with hypoxia Severe sepsis shock status: without septic shock Qualified Code(s): A41.9 - Sepsis, unspecified organism; R65.20 - Severe sepsis without septic shock; J96.01 - Acute respiratory failure with hypoxia Code(s): A41.9 - Sepsis, unspecified organism Status: Resolved Assessment and Plan: Acute sepsis with tachycardia, tachypnea, and leukocytosis on admission (8) Essential (primary) hypertension: Code(s): I10 - Essential (primary) hypertension Status: Chronic Assessment and Plan: Bp slight high secondary to steroids. Continue amlodipine and lisinopril. (9) Gastro-esophageal reflux disease without esophagitis: Code(s): K21.9 - Gastro-esophageal reflux disease without esophagitis Status: Chronic Assessment and Plan: Continue PPI therapy. (10) HLD (hyperlipidemia): Qualifiers: Hyperlipidemia type: unspecified Qualified Code(s): E78.5 - Hyperlipidemia, unspecified Code(s): E78.5 - Hyperlipidemia, unspecified Status: Chronic Assessment and Plan: Continue pravastatin. (11) Chronic anticoagulation: Code(s): Z79.01 - intermediate (current) use of anticoagulants Status: Chronic Assessment and Plan: patient is chronically anticoagulated on warfarin secondary to previous DVT. INR is 2.1 continue to monitor in hospital. Subjective Date/time seen: 05/13/20 12:26 Interval history: Patient is a 74 yo M with history of COPD, chronically anticoagulated on warfarin secondary to previous right lower extremity DVT, known to have supplemental 1 L of oxygen as needed at home via nasal cannula, as well as, lung cancer s/p partial left upper lobectomy. Doing well, Covid negative, Recovering, sp chest tube in R lung for pneumothorax continue to leave chest tube to wall suction. Review of Systems Review of Systems: All systems reviewed & are unremark
[2020-05-13 16:00] VITALS: BP 138/66; PULSE 73; RESP 18; TEMP 36.9; O2SAT 97
[2020-05-13] MEDS: WARFARIN (*PBKC) 5 MG TABLET PO (17:16)
[2020-05-13 20:00] VITALS: BP 128/70; PULSE 77; RESP 20; TEMP 36.6; O2SAT 96; O2SAT 97
[2020-05-14] VITALS (9 sets, daily range): BP systolic 132–156; BP diastolic 66–77; PULSE 67–78; RESP 16–20; TEMP 36.3–37; O2SAT 95–100
[2020-05-14 06:44] LABS: Hematocrit 44.7 % (42.0-52.0); Hemoglobin 14.2 g/dL (14.0-18.0); Mean Corpuscular HGB Conc 31.8 g/dl (32-36); Mean Corpuscular Hemoglobin 26.9 pg (26-34); Mean Corpuscular Volume 84.8 fl (80-100); Platelet Count Result 253 k/mm3 (150-375); Red Blood Count 5.27 M/mm3 (4.6-6.20); Red Cell Distribution Width 16.5 % (11.5-14.5); White Blood Count 18.1 K/mm3 (4.5-10.0)
[2020-05-14 07:11] LABS: INR 2.1; Prothrombin Time 24.3 Seconds (11.1-14.7)
[2020-05-14] MEDS: PANTOPRAZOLE 40 MG TABLET PO (08:18)
[2020-05-14] MEDS: CALCIUM CARBONATE (OSCAL) 500 MG TABLET PO (08:18)
[2020-05-14] MEDS: OMEGA 3 POLYUNSAT FATTY ACIDS 1 GM CAP PO (08:18)
[2020-05-14] MEDS: lisinopriL 20 MG TABLET 40 MG PO (08:18)
[2020-05-14] MEDS: PRAVASTATIN SODIUM 20 MG TABLET PO (08:18)
[2020-05-14] MEDS: ASCORBIC ACID 500 MG TABLET PO (08:19)
[2020-05-14] MEDS: amLODIPine BESYLATE 5 MG TABLET PO (08:19)
[2020-05-14] MEDS: CHOLECALCIFEROL 1,000 UNITS TABLET 1000 UNITS PO (08:19)
[2020-05-14] MEDS: AZITHROMYCIN 250 MG TABLET PO (08:19)
[2020-05-14] MEDS: VITAMIN B COMPLEX CAPSULE 1 CAP PO (08:19)
[2020-05-14] MEDS: MULTIVITAMINS THERAPEUTIC TAB (*BKC) 1 TABLET PO (08:19)
[2020-05-14] MEDS: ASPIRIN 81 MG CHEWABLE TABLET PO (08:19)
[2020-05-14] MEDS: DEXAMETHASONE SOD PHOS INJ 4 MG/ML VIAL 6 MG IV PUSH (08:20)
[2020-05-14] MEDS: guaiFENesin 12 HR 600 MG TABCR 1200 MG PO ×2 (08:21→21:15)
--- NOTE | 2020-05-14 08:26 | PM.PNGS ---
Progress Note: A&P Assessment and Plan (1) Pneumothorax on right: Code(s): J93.9 - Pneumothorax, unspecified Status: Acute Assessment and Plan: Chest x-ray this morning is unchanged with chest tube in position. Still has an air leak. Will put the chest tube to water seal this morning and repeat a chest x-ray around 9:00 am. Further plan depending on f/u x-ray. (2) Pneumonia: Qualifiers: Laterality: bilateral Lung location: unspecified part of lung Pneumonia type: due to unspecified organism Qualified Code(s): J18.9 - Pneumonia, unspecified organism Code(s): J18.9 - Pneumonia, unspecified organism Status: Acute Assessment and Plan: On oral antibiotics and bronchodilators. Continue management per Hospitalist. (3) Chronic anticoagulation: Code(s): Z79.01 - [employer] (current) use of anticoagulants Status: Chronic Assessment and Plan: On warfarin currently, INR 2.1. (4) COPD (chronic obstructive pulmonary disease): Code(s): J44.9 - Chronic obstructive pulmonary disease, unspecified Status: Acute (5) Chronic respiratory failure with hypoxia: Code(s): J96.11 - Chronic respiratory failure with hypoxia Status: Acute Additional Plan Discussed plan with Dr. Anderson. Subjective Subjective Date/Time Seen: 05/14/20 08:26 Patient reports: no new complaints Interval history: Patient feeling well today. Still no shortness of breath or difficulty breathing. Review of Systems Review of Systems: All systems reviewed & are unremarkable except as noted in HPI and below Exam Const: General: no acute distress, alert and awake Orientation/consciousness: patient oriented x3 Chest: Chest palpation & inspection: no crepitus ( no subcutaneous emphysema) Other: Right lateral chest tube, air leak noted again today. Resp: Effort & Inspection: normal respiratory effort and able to speak in complete sentences Auscultation: wheezes expiratory wheezes, inspiratory wheezes and throughout Skin: General skin exam: normal color Neuro: General: moves all extremities and no focal motor deficits Psych: Appearance: grossly normal Mental Status: mental status grossly normal Insight: Good insight present (Psych) Judgement: Good judgement present (Psych) Objective Data Vital Signs Vital Signs: Vital Signs - 24 hr 05/13/20 12:00 05/13/20 16:00 12/23/20 20:00 Temperature 98.4 F 98.5 F 97.8 F Pulse Rate 69 73 77 Respiratory Rate 18 18 20 Blood Pressure 149/69 H 138/66 128/70 Pulse Oximetry 98 97 96 05/14/20 00:00 05/14/20 04:00 Temperature 97.3 F L 97.3 F L Pulse Rate 71 70 Respiratory Rate 20 18 Blood Pressure 138/74 140/72 Pulse Oximetry 99 98 Intake/Output Intake/Output: Intake & Output 05/11/20 05/12/20 05/13/20 05/14/20 23:59 23:59 23:59 23:59 Intake Total 2450 2280 2740 500 Output Total 1650 2410 3260 900 Balance 776 -732 -405 -400 Meds/Results Medications: Active Medications Generic Name Dose Route Start Last Admin Trade Name Freq PRN Reason Stop Dose Admin Acetaminophen 650 mg 05/10/20 21:11 05/12/20 16:31 Acetaminophen 325 Mg Tablet PO 650 mg Q4H PRN Administration Mild Pain (1-3) or Fever Hydrocodone Bitart/Acetaminophen 1 tab 05/10/20 21:11 05/13/20 17:23 Hydrocodone/Acetaminophen (*Crx) 5-325 Mg Tablet PO 1 tab Q4H PRN Administration Moderate Pain (4-6) Albuterol 2 puff 05/11/20 17:42 Albuterol Sulfate (*Sp) Aerosol 1 Puff INHALATION Q6HRT PRN sob/wheezing Albuterol 2 puff 05/11/20 20:00 05/13/20 14:30 Albuterol Sulfate (*Sp) Aerosol 1 Puff INHALATION 2 puff Q6HRT ASHANTI Administration Amlodipine Besylate 5 mg 05/11/20 09:00 05/14/20 08:19 Amlodipine Besylate 5 Mg Tablet PO 5 mg DAILY ASHANTI Administration Ascorbic Acid 500 mg 05/11/20 09:00 05/14/20 08:19 Ascorbic Acid 500 Mg Tablet PO 500 mg DAILY ASHANTI Administration Aspirin 81
[2020-05-14] MEDS: PSYLLIUM POWDER PACKET 1 PACKET PO (09:00)
[2020-05-14] MEDS: ALBUTEROL SULFATE (*SP) AEROSOL 1 PUFF 2 PUFF INHALATION ×3 (13:56→21:18)
--- NOTE | 2020-05-14 14:01 | PM.IMPN ---
Progress Note: A&P Assessment and Plan (1) Acute respiratory failure with hypoxia: Code(s): J96.01 - Acute respiratory failure with hypoxia Status: Acute Assessment and Plan: Appears to be secondary to both pneumonia and pneumothorax. Continue oxygen supplementation at 3 liters. Patient is a 74 yo M with history of COPD, chronically anticoagulated on warfarin secondary to previous right lower extremity DVT, known to have supplemental 1 L of oxygen as needed at home via nasal cannula, as well as, lung cancer s/p partial left upper lobectomy. Doing well, Covid negative, Recovering, sp chest tube in R lung for pneumothorax continue to leave chest tube to wall suction. Patient is 74-year-old male with history of COPD and chronic respiratory failure on home oxygen he presented emergency department with a complaint of shortness of breath, chest x-ray showed a [id number] right-sided pneumothorax, emergency department chest tube was placed surgery has been consulted for the management, repeat x-ray today still shows small right pneumothorax patient is seen by surgery team recommended to continue present management with water-seal suction only and repeat chest x-ray tomorrow, patient states is feeling much better not as short of breath as when he arrived denies any fever or chills. (2) Pneumonia: Qualifiers: Pneumonia type: due to unspecified organism Laterality: bilateral Lung location: unspecified part of lung Qualified Code(s): J18.9 - Pneumonia, unspecified organism Code(s): J18.9 - Pneumonia, unspecified organism Status: Acute Assessment and Plan: CAP. Continue IV antibiotics that were started in the ER. BC negative to date (3) Spontaneous pneumothorax: Code(s): J93.83 - Other pneumothorax Status: Acute Assessment and Plan: Chest tube has been placed by ER provider. General surgery has been consulted to manage chest tube. Continue general surgery recommendations. (4) Suspected 2019 novel coronavirus infection: Code(s): Z20.828 - Contact with and (suspected) exposure to other viral communicable diseases Status: Ruled-out Assessment and Plan: COVID TEST is negative. (5) COPD exacerbation: Code(s): J44.1 - Chronic obstructive pulmonary disease with (acute) exacerbation Status: Acute Assessment and Plan: MIld COPD excerbation Will continue bronchodilators, steroid therapy. (6) Elevated WBC count: Qualifiers: Leukocytosis type: unspecified Qualified Code(s): D72.829 - Elevated white blood cell count, unspecified Code(s): D72.829 - Elevated white blood cell count, unspecified Status: Acute Assessment and Plan: The patient's leukocytosis may be secondary to pneumonia (7) Sepsis: Qualifiers: Sepsis type: sepsis due to unspecified organism Sepsis acute organ dysfunction status: with acute organ dysfunction Severe sepsis acute organ dysfunction type: acute respiratory failure Acute respiratory failure type: with hypoxia Severe sepsis shock status: without septic shock Qualified Code(s): A41.9 - Sepsis, unspecified organism; R65.20 - Severe sepsis without septic shock; J96.01 - Acute respiratory failure with hypoxia Code(s): A41.9 - Sepsis, unspecified organism Status: Resolved Assessment and Plan: Acute sepsis with tachycardia, tachypnea, and leukocytosis on admission (8) Essential (primary) hypertension: Code(s): I10 - Essential (primary) hypertension Status: Chronic Assessment and Plan: Bp slight high secondary to steroids. Continue amlodipine and lisinopril. (9) Gastro-esophageal reflux disease without esophagitis: Code(s): K21.9 - Gastro-esophageal reflux disease without esophagitis Status: Chronic Assessment and Plan: Continue PPI therapy. (10) HLD (hyperlipidemia): Qualifiers: Hype
[2020-05-14] MEDS: HYDROcodone/acetaminophen (*CRX) 5-325 MG TABLET 1 TAB PO ×2 (17:15→21:25)
[2020-05-14] MEDS: WARFARIN (*PBKC) 2.5 MG TABLET PO (17:16)
[2020-05-15] VITALS: BP 130/70; PULSE 69; RESP 20; TEMP 36.8; O2SAT 97
[2020-05-15 00:34] LABS: Pneumococcal Antigen Urine Not Detected (Not Detected)
[2020-05-15] MEDS: HYDROcodone/acetaminophen (*CRX) 5-325 MG TABLET 1 TAB PO ×4 (02:03→20:05)
[2020-05-15] MEDS: ALBUTEROL SULFATE (*SP) AEROSOL 1 PUFF 2 PUFF INHALATION ×4 (02:04→20:09)
[2020-05-15 04:00] VITALS: BP 134/78; PULSE 67; RESP 18; TEMP 36.2; O2SAT 97
[2020-05-15 06:40] LABS: Hematocrit 42.6 % (42.0-52.0); Hemoglobin 13.5 g/dL (14.0-18.0); Mean Corpuscular HGB Conc 31.7 g/dl (32-36); Mean Corpuscular Hemoglobin 26.5 pg (26-34); Mean Corpuscular Volume 83.5 fl (80-100); Mean Platelet Volume 8.8 fl (7.4-10.4); Platelet Count Result 247 k/mm3 (150-375); Red Cell Distribution Width 16.4 % (11.5-14.5); White Blood Count 15.9 K/mm3 (4.5-10.0)
[2020-05-15 06:52] LABS: INR 2.7; Prothrombin Time 28.9 Seconds (11.1-14.7)
[2020-05-15 06:55] LABS: Anion Gap 8 mmol/L (8-16); Blood Urea Nitrogen 30 mg/dL (9-20); Calcium 8.9 mg/dL (8.4-10.2); Carbon Dioxide 28 mmol/L (22-30); Chloride 99 mmol/L (98-107); Estimated CRCL calculation 59 ml/min; Estimated Glomerular Filt Rate > 60; Glucose 104 mg/dL (75-110); Potassium 4.3 mmol/L (3.4-5.0); Sodium 135 mmol/L (137-145)
[2020-05-15] MEDS: CALCIUM CARBONATE (OSCAL) 500 MG TABLET PO (07:58)
[2020-05-15] MEDS: lisinopriL 20 MG TABLET 40 MG PO (07:58)
[2020-05-15] MEDS: ASPIRIN 81 MG CHEWABLE TABLET PO (07:58)
[2020-05-15] MEDS: MULTIVITAMINS THERAPEUTIC TAB (*BKC) 1 TABLET PO (07:59)
[2020-05-15] MEDS: PSYLLIUM POWDER PACKET 1 PACKET PO (07:59)
[2020-05-15] MEDS: PANTOPRAZOLE 40 MG TABLET PO (07:59)
[2020-05-15] MEDS: OMEGA 3 POLYUNSAT FATTY ACIDS 1 GM CAP PO (07:59)
[2020-05-15] MEDS: guaiFENesin 12 HR 600 MG TABCR 1200 MG PO ×2 (07:59→20:06)
[2020-05-15] MEDS: ASCORBIC ACID 500 MG TABLET PO (07:59)
[2020-05-15] MEDS: CHOLECALCIFEROL 1,000 UNITS TABLET 1000 UNITS PO (07:59)
[2020-05-15] MEDS: PRAVASTATIN SODIUM 20 MG TABLET PO (07:59)
[2020-05-15] MEDS: VITAMIN B COMPLEX CAPSULE 1 CAP PO (07:59)
[2020-05-15] MEDS: DEXAMETHASONE SOD PHOS INJ 4 MG/ML VIAL 6 MG IV PUSH (07:59)
[2020-05-15] MEDS: amLODIPine BESYLATE 5 MG TABLET PO (07:59)
[2020-05-15 08:11] VITALS: O2SAT 98
--- NOTE | 2020-05-15 10:09 | PM.PNGS ---
Progress Note: A&P Assessment and Plan (1) Pneumothorax on right: Code(s): J93.9 - Pneumothorax, unspecified Status: Acute Assessment and Plan: Chest x-ray this morning is unchanged with chest tube in position. Still has an air leak. Since patient is stable on this will continue chest tube on water seal. Will plan to clamp chest tube 2 hours prior to chest x-ray tomorrow morning and see if pneumothorax recurs. If not may consider trial of removal to see how the patient does but he would probably need to stay in the hospital 24 hours with the chest tube set up available and be observed closely. With the amount of air leak I suspect that his pneumothorax will recur with clamping of the tube. I have discussed this with him and his nurse. They will simply removed the clamp if he begins to have shortness of breath or chest pain on the right with clamping. If air leak continues patient may need to transfer out to a thoracic surgeon for thoracoscopy and further therapy. (2) Pneumonia: Qualifiers: Laterality: bilateral Lung location: unspecified part of lung Pneumonia type: due to unspecified organism Qualified Code(s): J18.9 - Pneumonia, unspecified organism Code(s): J18.9 - Pneumonia, unspecified organism Status: Acute Assessment and Plan: On oral antibiotics and bronchodilators. Continue management per Hospitalist. (3) Chronic anticoagulation: Code(s): Z79.01 - [facility] (current) use of anticoagulants Status: Chronic Assessment and Plan: On warfarin currently, INR 2.1. (4) COPD (chronic obstructive pulmonary disease): Code(s): J44.9 - Chronic obstructive pulmonary disease, unspecified Status: Acute (5) Chronic respiratory failure with hypoxia: Code(s): J96.11 - Chronic respiratory failure with hypoxia Status: Acute Additional Plan Discussed plan with Dr. James. Subjective Subjective Date/Time Seen: 05/15/20 10:09 Patient reports: feels better Interval history: patient is sitting up in bed when I entered the room. He denies shortness of breath or chest pain. Tolerating a diet. Review of Systems Review of Systems: All systems reviewed & are unremarkable except as noted in HPI and below Constitutional: Constitutional: Reports as per HPI, Denies chills, Denies excessive sweating, Denies fatigue, Denies fever(s), Denies headache(s) and Denies weakness Eyes: Eyes: Denies change in vision and Denies loss of vision ENT: Denies dizziness and Denies headache(s) Cardiovascular: Cardiovascular: Denies chest pain, Denies syncope, Denies leg edema, Denies lightheadedness, Denies radiating jaw, neck or arm pain, Reports dyspnea and Reports dyspnea on exertion Respiratory: Respiratory: Reports as per HPI, Reports no additional respiratory complaints, Denies change in phlegm color, Reports cough, Denies hemoptysis, Denies excessive phlegm production, Reports dyspnea, Reports dyspnea on exertion and Denies wheezing Gastrointestinal: Gastrointestinal: Reports no additional gastrointestinal complaints, Denies abdominal pain, Denies change in bowel habits, Denies change in stool character, Denies GI cramping, Denies diarrhea, Denies nausea and Denies vomiting Genitourinary: Genitourinary: Reports no additional male genitourinary complaints, Denies hematuria and Denies dysuria Musculoskeletal: Musculoskeletal: Denies deformity, Denies joint swelling, Denies radiating pain into limb and Denies tingling Integumentary/Breasts: Skin/Breast: Denies pruritus, Denies wounds and Denies jaundice Neurologic: Denies dizziness, Denies syncope, Denies headache(s), Denies loss of vision, Denies tingling, Denies tremor(s) and Denies weakness Psychiatric: Psychiatric: Denies anxiety and Denies depression Endocrine: Endocrine: Denies cold intolerance, Denies excessive sweating, Denies fatigue and Denies heat intolerance Hematologic/Lymphatic: Hematologic/Lympha
--- NOTE | 2020-05-15 13:16 | PM.IMPN ---
Progress Note: A&P Assessment and Plan (1) Acute respiratory failure with hypoxia: Code(s): J96.01 - Acute respiratory failure with hypoxia Status: Acute Assessment and Plan: Appears to be secondary to both pneumonia and pneumothorax. Continue oxygen supplementation at 3 liters. Patient is a 74 yo M with history of COPD, chronically anticoagulated on warfarin secondary to previous right lower extremity DVT, known to have supplemental 1 L of oxygen as needed at home via nasal cannula, as well as, lung cancer s/p partial left upper lobectomy. Doing well, Covid negative, Recovering, sp chest tube in R lung for pneumothorax continue to leave chest tube to wall suction. Patient is 74-year-old male with history of COPD and chronic respiratory failure on home oxygen he presented emergency department with a complaint of shortness of breath, chest x-ray showed a [id number] right-sided pneumothorax, emergency department chest tube was placed surgery has been consulted for the management, repeat x-ray on 05/15 showed improvement with small right pneumothorax patient is seen by surgery team today recommended to continue present management with water-seal suction and early tomorrow morning we will clamped the tube and monitor, if patient developed shortness of breath will release the clamped, will repeat the chest x-ray to check reoccurring pneumothorax, currently patient states is feeling much better not as short of breath as when he arrived denies any fever or chills. will continue advair and albuterol, (2) Pneumonia: Qualifiers: Pneumonia type: due to unspecified organism Laterality: bilateral Lung location: unspecified part of lung Qualified Code(s): J18.9 - Pneumonia, unspecified organism Code(s): J18.9 - Pneumonia, unspecified organism Status: Acute Assessment and Plan: CAP. Continue IV antibiotics that were started in the ER. BC negative to date (3) Spontaneous pneumothorax: Code(s): J93.83 - Other pneumothorax Status: Acute Assessment and Plan: Chest tube has been placed by ER provider. General surgery has been consulted to manage chest tube. Continue general surgery recommendations. (4) Suspected 2019 novel coronavirus infection: Code(s): Z20.828 - Contact with and (suspected) exposure to other viral communicable diseases Status: Ruled-out Assessment and Plan: COVID TEST is negative. (5) COPD exacerbation: Code(s): J44.1 - Chronic obstructive pulmonary disease with (acute) exacerbation Status: Acute Assessment and Plan: MIld COPD excerbation Will continue bronchodilators, steroid therapy. (6) Elevated WBC count: Qualifiers: Leukocytosis type: unspecified Qualified Code(s): D72.829 - Elevated white blood cell count, unspecified Code(s): D72.829 - Elevated white blood cell count, unspecified Status: Acute Assessment and Plan: The patient's leukocytosis may be secondary to pneumonia (7) Sepsis: Qualifiers: Sepsis type: sepsis due to unspecified organism Sepsis acute organ dysfunction status: with acute organ dysfunction Severe sepsis acute organ dysfunction type: acute respiratory failure Acute respiratory failure type: with hypoxia Severe sepsis shock status: without septic shock Qualified Code(s): A41.9 - Sepsis, unspecified organism; R65.20 - Severe sepsis without septic shock; J96.01 - Acute respiratory failure with hypoxia Code(s): A41.9 - Sepsis, unspecified organism Status: Resolved Assessment and Plan: Acute sepsis with tachycardia, tachypnea, and leukocytosis on admission (8) Essential (primary) hypertension: Code(s): I10 - Essential (primary) hypertension Status: Chronic Assessment and Plan: Bp slight high secondary to steroids. Continue amlodipine and lisinopril. (9) Gastro-esophageal reflux disease witho
[2020-05-15 14:00] VITALS: BP 119/74; PULSE 91; RESP 16; TEMP 36.9; O2SAT 96
[2020-05-15] MEDS: WARFARIN (*PBKC) 5 MG TABLET PO (16:38)
[2020-05-15 20:00] VITALS: BP 146/67; PULSE 80; RESP 20; TEMP 36.6; O2SAT 98
[2020-05-15] MEDS: FLUTICASONE/SALMETEROL 115-21 MCG INHALER 1 PUFF 2 PUFF INHALATION (20:10)
[2020-05-15 23:55] VITALS: BP 127/71; PULSE 75; RESP 20; TEMP 36.3; O2SAT 97
[2020-05-16] MEDS: HYDROcodone/acetaminophen (*CRX) 5-325 MG TABLET 1 TAB PO ×5 (00:16→21:06)
[2020-05-16] MEDS: ALBUTEROL SULFATE (*SP) AEROSOL 1 PUFF 2 PUFF INHALATION ×4 (02:13→20:53)
[2020-05-16 04:00] VITALS: BP 160/78; PULSE 77; RESP 18; TEMP 36.6; O2SAT 97
[2020-05-16 06:19] LABS: Hematocrit 42.7 % (42.0-52.0); Hemoglobin 13.8 g/dL (14.0-18.0); Mean Corpuscular HGB Conc 32.3 g/dl (32-36); Mean Corpuscular Hemoglobin 26.5 pg (26-34); Mean Corpuscular Volume 82.1 fl (80-100); Mean Platelet Volume 8.9 fl (7.4-10.4); Platelet Count Result 272 k/mm3 (150-375); Red Cell Distribution Width 16.1 % (11.5-14.5); White Blood Count 18.9 K/mm3 (4.5-10.0)
[2020-05-16 06:30] LABS: Prothrombin Time 31.3 Seconds (11.1-14.7)
[2020-05-16 06:46] LABS: Anion Gap 10 mmol/L (8-16); Blood Urea Nitrogen 29 mg/dL (9-20); Calcium 8.9 mg/dL (8.4-10.2); Carbon Dioxide 23 mmol/L (22-30); Chloride 100 mmol/L (98-107); Estimated CRCL calculation 65 ml/min; Estimated Glomerular Filt Rate > 60; Glucose 120 mg/dL (75-110); Potassium 4.2 mmol/L (3.4-5.0); Sodium 133 mmol/L (137-145)
[2020-05-16 08:00] VITALS: BP 138/64; PULSE 74; RESP 18; TEMP 36.7; O2SAT 98
[2020-05-16] MEDS: guaiFENesin 12 HR 600 MG TABCR 1200 MG PO ×2 (08:14→20:54)
[2020-05-16] MEDS: OMEGA 3 POLYUNSAT FATTY ACIDS 1 GM CAP PO (08:14)
[2020-05-16] MEDS: lisinopriL 20 MG TABLET 40 MG PO (08:14)
[2020-05-16] MEDS: MULTIVITAMINS THERAPEUTIC TAB (*BKC) 1 TABLET PO (08:14)
[2020-05-16 08:15] VITALS: O2SAT 97
[2020-05-16] MEDS: PRAVASTATIN SODIUM 20 MG TABLET PO (08:15)
[2020-05-16] MEDS: amLODIPine BESYLATE 5 MG TABLET PO (08:15)
[2020-05-16] MEDS: ASCORBIC ACID 500 MG TABLET PO (08:15)
[2020-05-16] MEDS: CHOLECALCIFEROL 1,000 UNITS TABLET 1000 UNITS PO (08:15)
[2020-05-16] MEDS: VITAMIN B COMPLEX CAPSULE 1 CAP PO (08:15)
[2020-05-16] MEDS: ASPIRIN 81 MG CHEWABLE TABLET PO (08:15)
[2020-05-16] MEDS: PANTOPRAZOLE 40 MG TABLET PO (08:16)
[2020-05-16] MEDS: PSYLLIUM POWDER PACKET 1 PACKET PO (08:16)
[2020-05-16] MEDS: DEXAMETHASONE SOD PHOS INJ 4 MG/ML VIAL 6 MG IV PUSH (08:16)
[2020-05-16] MEDS: CALCIUM CARBONATE (OSCAL) 500 MG TABLET PO (08:17)
[2020-05-16] MEDS: FLUTICASONE/SALMETEROL 115-21 MCG INHALER 1 PUFF 2 PUFF INHALATION ×2 (08:22→20:53)
--- NOTE | 2020-05-16 11:20 | PM.PNGS ---
Progress Note: A&P Assessment and Plan (1) Pneumothorax on right: Code(s): J93.9 - Pneumothorax, unspecified Status: Acute Assessment and Plan: Chest x-ray this morning is changed with the slightly larger right pneumothorax with the chest tube clamped. Chest tube is still in position. With the chest tube unclamped and 2 water-seal there is still an air leak. Since patient is stable on this will continue chest tube on water seal. Will plan to redo the dressing and perhaps chest tube out 4-5 cm if patient unable to transfer today. At this time I would recommend plans for transfer to a center where there is a thoracic surgeon who could consider thoracoscopy and further therapy for this apparent continuous air leak from his right lung. This was discussed with Dr. James today.. (2) Pneumonia: Qualifiers: Laterality: bilateral Lung location: unspecified part of lung Pneumonia type: due to unspecified organism Qualified Code(s): J18.9 - Pneumonia, unspecified organism Code(s): J18.9 - Pneumonia, unspecified organism Status: Acute Assessment and Plan: On oral antibiotics and bronchodilators. Continue management per Hospitalist. (3) Chronic anticoagulation: Code(s): Z79.01 - intermission coordinator (current) use of anticoagulants Status: Chronic Assessment and Plan: On warfarin currently, INR 2.1. (4) COPD (chronic obstructive pulmonary disease): Code(s): J44.9 - Chronic obstructive pulmonary disease, unspecified Status: Acute (5) Chronic respiratory failure with hypoxia: Code(s): J96.11 - Chronic respiratory failure with hypoxia Status: Acute Additional Plan Discussed plan with Dr. James. If for some reason patient is unable to be transferred in the next day or so I will consider taking down the dressing with his nurse and perhaps pulling the chest tube back 4-5 cm to see if that makes any difference in the air leak. The current pneumothorax seems to be right alongside the chest tube. Subjective Subjective Date/Time Seen: 05/16/20 09:20 Patient standing at the bedside when I entered the room. He tolerated having his chest tube clamped for 2 hours. However the pneumothorax is slightly larger with chest x-ray at that point and the patient is still having any air leak when it is return to water seal. He did not get short of breath while his chest tube was clamped. Review of Systems Review of Systems: All systems reviewed & are unremarkable except as noted in HPI and below Constitutional: Constitutional: Reports as per HPI, Denies chills, Denies excessive sweating, Denies fatigue, Denies fever(s), Denies headache(s) and Denies weakness Eyes: Eyes: Denies change in vision and Denies loss of vision ENT: Denies dizziness and Denies headache(s) Cardiovascular: Cardiovascular: Denies chest pain, Denies syncope, Denies leg edema, Denies lightheadedness, Denies radiating jaw, neck or arm pain, Reports dyspnea and Reports dyspnea on exertion Respiratory: Respiratory: Reports as per HPI, Reports no additional respiratory complaints, Denies change in phlegm color, Reports cough, Denies hemoptysis, Denies excessive phlegm production, Reports dyspnea, Reports dyspnea on exertion and Denies wheezing Gastrointestinal: Gastrointestinal: Reports no additional gastrointestinal complaints, Denies abdominal pain, Denies change in bowel habits, Denies change in stool character, Denies GI cramping, Denies diarrhea, Denies nausea and Denies vomiting Genitourinary: Genitourinary: Reports no additional male genitourinary complaints, Denies hematuria and Denies dysuria Musculoskeletal: Musculoskeletal: Denies deformity, Denies joint swelling, Denies radiating pain into limb and Denies tingling Integumentary/Breasts: Skin/Breast: Denies pruritus, Denies wounds and Denies jaundice Neurologic: Denies dizziness, Denies syncope, Denies headache(s), Denies loss of vision, Denies
[2020-05-16 12:00] VITALS: BP 144/74; PULSE 87; RESP 18; TEMP 36.8; O2SAT 96
--- NOTE | 2020-05-16 13:02 | PM.IMPN ---
Progress Note: A&P Assessment and Plan (1) Acute respiratory failure with hypoxia: Code(s): J96.01 - Acute respiratory failure with hypoxia Status: Acute Assessment and Plan: Patient is a 74 yo M with history of COPD, chronically anticoagulated on warfarin secondary to previous right lower extremity DVT, known to have supplemental 1 L of oxygen as needed at home via nasal cannula, as well as, lung cancer s/p partial left upper lobectomy. Doing well, Covid negative, Recovering, sp chest tube in R lung for pneumothorax continue to leave chest tube to wall suction. Patient is 74-year-old male with history of COPD and chronic respiratory failure on home oxygen he presented emergency department with a complaint of shortness of breath, chest x-ray showed a [id number] right-sided pneumothorax, emergency department chest tube was placed surgery has been consulted for the management, repeat x-ray on 05/15 showed improvement with small right pneumothorax patient was seen by surgery team on 05/15 recommended to continue present management with water-seal suction and bowling ball mold assembler on 05/16 clamped the tube 2 hrs, and monitor, if patient developed shortness of breath will release the clamped, patient remained clinically stable repeat chest x-ray showed a small pneumothorax today on 05/[address] Gasca suggested if can transfer patient to thoracic surgeon that would be better, I called [facility] and spoke with Dr. Carlson, recommending to monitor the patient at the hospital as they have no bed available currently, in this case Dr. Gasca will adjust chest tube and will monitor patient overnight and plan accordingly, in an event of emergency will call again [facility] for further recommendation will continue to monitor, appreciate Dr. Gasca. Currently patient states is feeling much better denies any cough shortness of breath fever or chills (2) Pneumonia: Qualifiers: Pneumonia type: due to unspecified organism Laterality: bilateral Lung location: unspecified part of lung Qualified Code(s): J18.9 - Pneumonia, unspecified organism Code(s): J18.9 - Pneumonia, unspecified organism Status: Acute Assessment and Plan: CAP. Continue IV antibiotics that were started in the ER. BC negative to date (3) Spontaneous pneumothorax: Code(s): J93.83 - Other pneumothorax Status: Acute Assessment and Plan: Chest tube has been placed by ER provider. General surgery has been consulted to manage chest tube. Continue general surgery recommendations. (4) Suspected 2019 novel coronavirus infection: Code(s): Z20.828 - Contact with and (suspected) exposure to other viral communicable diseases Status: Ruled-out Assessment and Plan: COVID TEST is negative. (5) COPD exacerbation: Code(s): J44.1 - Chronic obstructive pulmonary disease with (acute) exacerbation Status: Acute Assessment and Plan: MIld COPD excerbation Will continue bronchodilators, steroid therapy. (6) Elevated WBC count: Qualifiers: Leukocytosis type: unspecified Qualified Code(s): D72.829 - Elevated white blood cell count, unspecified Code(s): D72.829 - Elevated white blood cell count, unspecified Status: Acute Assessment and Plan: The patient's leukocytosis may be secondary to pneumonia (7) Sepsis: Qualifiers: Sepsis type: sepsis due to unspecified organism Sepsis acute organ dysfunction status: with acute organ dysfunction Severe sepsis acute organ dysfunction type: acute respiratory failure Acute respiratory failure type: with hypoxia Severe sepsis shock status: without septic shock Qualified Code(s): A41.9 - Sepsis, unspecified organism; R65.20 - Severe sepsis without septic shock; J96.01 - Acute respiratory failure with hypoxia Code(s): A41.9 - Sepsis, unspecified organism Sta
[2020-05-16 16:00] VITALS: BP 125/74; PULSE 93; RESP 18; TEMP 36.7; O2SAT 95
[2020-05-16] MEDS: WARFARIN (*PBKC) 5 MG TABLET PO (17:22)
--- NOTE | 2020-05-16 17:23 | P.OP_ITS ---
Procedure Note - Detailed Date of procedure: 05/16/20 Pre-op diagnosis: acute hypoxic respiratory failure, status post spontaneous right pneumothorax with continued air leak Post-op diagnosis: same Procedure performed: Adjustment of chest tube (pulled 7 cm) Description of procedure: Because this patient has a small bore chest tube in the right chest cavity with a continuing pneumothorax and continuing air leak we tried to transfer him to a thoracic surgeon today. This was not able to be accomplished although once there is a bed available he may be able to go to [facility] and see the thoracic surgeon that did the lobectomy on his left side many years ago. Because of this I thought perhaps it would help to readjust the chest tube as it seems to be pretty far in the chest and perhaps pulling the it back into the loculated right pneumothorax low and lateral in the Rt. chest cavity will help this air leak seal. Therefore, after reviewing the chest x-ray with Dr. Nina today we measured that the last hole was at least 7 cm from the inner chest wall. Therefore, I took all the tape off the patient's chest tube positioning him in the somewhat sitting position with his right arm for folded across his chest. This exposed the area of the chest tube entry nicely. We removed all the dressings including the Vaseline gauze. I prepped around the entire area with Betadine including a portion of the chest tube right external to his chest wall The suture holding the chest tube in place seemed to be just slightly loose so I was able to slide the tube out through the loop in the suture. I pul led the chest tube out 7 cm such that the 6 cm red on the chest tube was at the skin level. We then applied a new piece of sterile Vaseline gauze followed by a a split 3 x 3 followed by 4 pieces of tape to hold the chest tube in place cut such that I could wrap a piece of tape around the chest tube from each direction of the compass. This seemed to seal the end hold the tube nicely. At the end with coughing there was still an air leak. I placed the Pleur-Evac back to suction and is on a water seal via Pleur-Evac. Will do a chest x-ray in the morning and see how this is moved the chest tube in whether not is made any difference and reducing the pneumothorax. Anesthesia: none Surgeon: Olu Gasca MD Refinery Process Engineer: Kd, RN, nurse on the floor Estimated blood loss (mL): 0 Drains: No Packing: No Pathology: none sent Complications: No immediate complications Condition: stable Disposition: no change Findings: Very small bore chest tube with only a puncture wound at the entrance of the tube into the chest wall.
[2020-05-16 20:00] VITALS: BP 148/71; PULSE 72; RESP 20; TEMP 36.4; O2SAT 98
[2020-05-17] VITALS: BP 145/76; PULSE 71; RESP 20; TEMP 36.2; O2SAT 97
[2020-05-17] MEDS: HYDROcodone/acetaminophen (*CRX) 5-325 MG TABLET 1 TAB PO ×2 (01:23→06:02)
[2020-05-17] MEDS: ALBUTEROL SULFATE (*SP) AEROSOL 1 PUFF 2 PUFF INHALATION ×3 (01:24→13:22)
[2020-05-17 04:00] VITALS: BP 157/80; PULSE 75; RESP 18; TEMP 36.2; O2SAT 98
[2020-05-17 07:17] LABS: Hematocrit 41.9 % (42.0-52.0); Hemoglobin 13.7 g/dL (14.0-18.0); Mean Corpuscular HGB Conc 32.7 g/dl (32-36); Mean Corpuscular Hemoglobin 26.9 pg (26-34); Mean Corpuscular Volume 82.2 fl (80-100); Mean Platelet Volume 8.5 fl (7.4-10.4); Platelet Count Result 264 k/mm3 (150-375); Red Cell Distribution Width 16.2 % (11.5-14.5); White Blood Count 17.7 K/mm3 (4.5-10.0)
[2020-05-17 07:27] LABS: Anion Gap 8 mmol/L (8-16); Blood Urea Nitrogen 29 mg/dL (9-20); Calcium 8.7 mg/dL (8.4-10.2); Carbon Dioxide 26 mmol/L (22-30); Chloride 98 mmol/L (98-107); Estimated CRCL calculation 65 ml/min; Estimated Glomerular Filt Rate > 60; Glucose 114 mg/dL (75-110); Potassium 4.3 mmol/L (3.4-5.0); Sodium 132 mmol/L (137-145)
[2020-05-17 07:31] LABS: INR 3.6; Prothrombin Time 36.6 Seconds (11.1-14.7)
[2020-05-17 08:00] VITALS: BP 146/73; PULSE 70; RESP 18; TEMP 36.7; O2SAT 98
--- NOTE | 2020-05-17 08:33 | PM.PNGS ---
Progress Note: A&P Assessment and Plan (1) Pneumothorax on right: Code(s): J93.9 - Pneumothorax, unspecified Status: Acute Assessment and Plan: Chest x-ray this morning is changed with the slightly smaller right pneumothorax with the chest tube to water seal and 20 cm of suction. Chest tube is still in position but x-ray shows it is appropriately retracted as I planned with dressing change and adjustment of the tube yesterday. With the chest tube unclamped and to water-seal there is still an air leak. Since patient is stable on this will continue chest tube on water seal and suction in hopes that this air leak will heal.. At this time I would recommend plans for transfer to a center where there is a thoracic surgeon who could consider thoracoscopy and further therapy for this apparent continuous air leak from his right lung. This was discussed with Dr. James today. (2) Pneumonia: Qualifiers: Laterality: bilateral Lung location: unspecified part of lung Pneumonia type: due to unspecified organism Qualified Code(s): J18.9 - Pneumonia, unspecified organism Code(s): J18.9 - Pneumonia, unspecified organism Status: Acute Assessment and Plan: On IV antibiotics and bronchodilators, and steroids. Positive mycoplasma pneumonia titer noted. Continue management per Hospitalist. (3) Chronic anticoagulation: Code(s): Z79.01 - shelter (current) use of anticoagulants Status: Chronic Assessment and Plan: On warfarin currently, INR 3.6 today. My consider skipping 1 day of Coumadin so this is closer to 2.5. Also in view of the possibility of surgery being needed if it is felt okay consider stopping aspirin and fish oil until after his surgical intervention. (4) COPD (chronic obstructive pulmonary disease): Code(s): J44.9 - Chronic obstructive pulmonary disease, unspecified Status: Acute (5) Chronic respiratory failure with hypoxia: Code(s): J96.11 - Chronic respiratory failure with hypoxia Status: Acute Additional Plan Discussed plan with Dr. James. Also in view of the possibility of surgery being needed if it is felt okay consider stopping aspirin and fish oil until after his surgical intervention. Consider leaving patient on water seal and suction but allowing him to take walks with the Pleur-Evac just water-seal. I think this gives us the best chance that this opening causing the air leak would heal spontaneously. Patient is willing to go to either [facility] or [facility] whichever has a bed 1st. Therefore, may be reasonable to try to transfer to [facility] today if bed available. The current pneumothorax seems to be right alongside the chest tube. Subjective Subjective Date/Time Seen: 05/17/20 08:33 Patient is sitting up in bed when I entered the room. He states his breathing is okay. No wheezing audible today. Not having any chest pain or shortness of breath. Review of Systems Review of Systems: All systems reviewed & are unremarkable except as noted in HPI and below Constitutional: Constitutional: Reports as per HPI, Denies chills, Denies excessive sweating, Denies fatigue, Denies fever(s), Denies headache(s) and Denies weakness Eyes: Eyes: Denies change in vision and Denies loss of vision ENT: Denies dizziness and Denies headache(s) Cardiovascular: Cardiovascular: Denies chest pain, Denies syncope, Denies leg edema, Denies lightheadedness, Denies radiating jaw, neck or arm pain, Reports dyspnea and Reports dyspnea on exertion Respiratory: Respiratory: Reports as per HPI, Reports no additional respiratory complaints, Denies change in phlegm color, Reports cough, Denies hemoptysis, Denies excessive phlegm production, Reports dyspnea, Reports dyspnea on exertion and Denies wheezing Gastrointestinal: Gastrointestinal: Reports no additional gastrointestinal complaints, Denies abdominal pain, Denies change in bowel habits, Denies change in stool charac
[2020-05-17] MEDS: FLUTICASONE/SALMETEROL 115-21 MCG INHALER 1 PUFF 2 PUFF INHALATION (09:58)
[2020-05-17] MEDS: ASPIRIN 81 MG CHEWABLE TABLET PO (09:59)
[2020-05-17] MEDS: amLODIPine BESYLATE 5 MG TABLET PO (09:59)
[2020-05-17 10:00] VITALS: O2SAT 98
[2020-05-17] MEDS: DEXAMETHASONE SOD PHOS INJ 4 MG/ML VIAL 6 MG IV PUSH (10:00)
[2020-05-17] MEDS: ASCORBIC ACID 500 MG TABLET PO (10:00)
[2020-05-17] MEDS: CALCIUM CARBONATE (OSCAL) 500 MG TABLET PO (10:00)
[2020-05-17] MEDS: CHOLECALCIFEROL 1,000 UNITS TABLET 1000 UNITS PO (10:00)
[2020-05-17] MEDS: lisinopriL 20 MG TABLET 40 MG PO (10:01)
[2020-05-17] MEDS: guaiFENesin 12 HR 600 MG TABCR 1200 MG PO (10:01)
[2020-05-17] MEDS: OMEGA 3 POLYUNSAT FATTY ACIDS 1 GM CAP PO (10:01)
[2020-05-17] MEDS: MULTIVITAMINS THERAPEUTIC TAB (*BKC) 1 TABLET PO (10:01)
[2020-05-17] MEDS: PRAVASTATIN SODIUM 20 MG TABLET PO (10:02)
[2020-05-17] MEDS: VITAMIN B COMPLEX CAPSULE 1 CAP PO (10:02)
[2020-05-17] MEDS: PSYLLIUM POWDER PACKET 1 PACKET PO (10:02)
[2020-05-17] MEDS: PANTOPRAZOLE 40 MG TABLET PO (10:02)
[2020-05-17 12:00] VITALS: BP 146/73; PULSE 83; RESP 18; TEMP 36.7; O2SAT 94
--- NOTE | 2020-05-17 14:52 | PM.TDS ---
Transfer Discharge Sum: Prov Provider Date of admission: 05/10/20 20:33 Primary care physician: Dean Romero MD Admitting clinician: Tito Rojas MD Consults: 05/10/20 20:34 Consult to Physician Routine Comment: Consulting Provider: Demond Anderson Reason for consultation: right pneumothorax Has provider been notified: Yes DS: Admitting Diagnosis Admitting Diagnosis Admitting Diagnosis: Acute respiratory failure with hypoxia: DS: Discharge Diagnosis Discharge Diagnosis (1) Acute respiratory failure with hypoxia: Code(s): J96.01 - Acute respiratory failure with hypoxia Status: Acute Assessment and Plan: Patient is a 74 yo M with history of COPD, chronically anticoagulated on warfarin secondary to previous right lower extremity DVT, known to have supplemental 1 L of oxygen as needed at home via nasal cannula, as well as, lung cancer s/p partial left upper lobectomy. Doing well, Covid negative, Recovering, sp chest tube in R lung for pneumothorax continue to leave chest tube to wall suction. Patient is 74-year-old male with history of COPD and chronic respiratory failure on home oxygen he presented emergency department with a complaint of shortness of breath, chest x-ray showed a [id number] right-sided pneumothorax, emergency department chest tube was placed surgery has been consulted for the management, repeat x-ray on 05/15 showed improvement with small right pneumothorax patient was seen by surgery team on 05/15 recommended to continue present management with water-seal suction and cardiograph operator on 05/16 clamped the tube 2 hrs, and monitor, if patient developed shortness of breath will release the clamped, patient remained clinically stable repeat chest x-ray showed a small pneumothorax today on 05/[address] Gasca suggested if can transfer patient to thoracic surgeon that would be better, I called [facility] and spoke with Dr. Carlson, recommending to monitor the patient at the hospital as they have no bed available currently, in this case Dr. Gasca will adjust chest tube and will monitor patient overnight and plan accordingly, in an event of emergency will call again [facility] for further recommendation will continue to monitor, appreciate Dr. Gasca. Currently patient states is feeling much better denies any cough shortness of breath fever or chills (2) Pneumonia: Qualifiers: Pneumonia type: due to unspecified organism Laterality: bilateral Lung location: unspecified part of lung Qualified Code(s): J18.9 - Pneumonia, unspecified organism Code(s): J18.9 - Pneumonia, unspecified organism Status: Acute Assessment and Plan: CAP. Continue IV antibiotics that were started in the ER. BC negative to date (3) Spontaneous pneumothorax: Code(s): J93.83 - Other pneumothorax Status: Acute Assessment and Plan: Chest tube has been placed by ER provider. General surgery has been consulted to manage chest tube. Continue general surgery recommendations. (4) Suspected 2019 novel coronavirus infection: Code(s): Z20.828 - Contact with and (suspected) exposure to other viral communicable diseases Status: Ruled-out Assessment and Plan: COVID TEST is negative. (5) COPD exacerbation: Code(s): J44.1 - Chronic obstructive pulmonary disease with (acute) exacerbation Status: Acute Assessment and Plan: MIld COPD excerbation Will continue bronchodilators, steroid therapy. (6) Elevated WBC count: Qualifiers: Leukocytosis type: unspecified Qualified Code(s): D72.829 - Elevated white blood cell count, unspecified Code(s): D72.829 - Elevated white blood cell count, unspecified Status: Acute Assessment and Plan: The patient's leukocytosis may be secondary to pneumonia (7) Sepsis: Qualifiers: Sepsis type: sepsi
[2020-05-17 16:00] VITALS: BP 122/66; PULSE 77; RESP 18; TEMP 36.6; O2SAT 94
== END 2020-05-17 15:53 | disposition short-term general hospital (02) | DRG 871 ==
LOC: ANHED 20:37 → ANH3MEDSUR 22:51
PROVIDERS: Family Medicine; Physician Assistant; Admitting Provider Family Medicine; Emergency Provider Emergency Medicine; PCP Family Medicine; Visit Provider Family Medicine
DX: A41.9 Sepsis, unspecified organism (principal); J18.9 Pneumonia, unspecified organism; J96.21 Acute and chronic respiratory failure with hypoxia; J93.83 Other pneumothorax; J44.1 Chronic obstructive pulmonary disease with (acute) exacerbation; J44.0 Chronic obstructive pulmonary disease with (acute) lower respiratory infection; J95.812 Postprocedural air leak; R65.20 Severe sepsis without septic shock; Z20.828 Contact with and (suspected) exposure to other viral communicable diseases; K21.9 Gastro-esophageal reflux disease without esophagitis; E78.5 Hyperlipidemia, unspecified; I10 Essential (primary) hypertension; M19.90 Unspecified osteoarthritis, unspecified site; Z79.01 Long term (current) use of anticoagulants; Z85.828 Personal history of other malignant neoplasm of skin; Z85.118 Personal history of other malignant neoplasm of bronchus and lung; Z87.891 Personal history of nicotine dependence; Z99.81 Dependence on supplemental oxygen; Z86.718 Personal history of other venous thrombosis and embolism
CPT/HCPCS: 32551; 36415; 36600; 71045; 80048; 80053; 82805; 83605; 83735; 83880; 84484; 85025; 85027; 85380; 85610; 85730; 86738; 87040; 87449; 87635; 87899; 93005; 94640; 96374; 96375; 99291; A9270; C1729; C9803; J0456; J0696; J1100; J2270; J2930; U0003